=== PATIENT | male | born 1955 | race African-American/Black ===

== ENCOUNTER 2017-02-19 11:02 | Inpatient (IN) | payer OTHER ==
[2017-02-19 17:23] VITALS: BMI 27.3
--- NOTE | 2017-02-19 17:23 | HP ---
CIWA Score - CIWA Score Nausea/Vomitin-Mild Nausea/No Vomiting Muscle Tremors: 4-Moderate,w/Arms Extend Anxiety: 4-Mod. Anxious/Guarded Agitation: 4-Moderately Restless Paroxysmal Sweats: 1-Minimal Palms Moist Orientation: 1-Uncertain about Date Tacttile Disturbances: 0-None Auditory Disturbances: 0-None Visual Disturbances: 0-None Headache: 1-Very Mild CIWA-Ar Total Score: 16 Admission ROS [facility]HS - HPI Chief Complaint: WITHDRAWAL SX Allergies/Adverse Reactions: Allergies Allergy/AdvReac Type Severity Reaction Status Date / Time No Known Allergies Allergy Verified 02/19/17 15:25 History of Present Illness: 51 YEARS OLD MALE WITH LONG HISTORY OF ALCOHOL NICOTINE COCAINE DEPENDENCE HAS HIV BPH DIABETES II PANCREATITIS GERD DENIES MENTAL ILLNESS IS ADMITTED TO DETOX Exam Limitations: No Limitations - Ebola screening Have you traveled outside of the country in the last 21 days: No Have you had contact with anyone from an Ebola affected area: No Have you been sick,other than usual withdrawal symptoms: No Do you have a fever: No - Review of Systems Constitutional: Chills, Loss of Appetite, Changes in sleep, Unintentional Wgt. Loss, Unexplained wgt Loss EENT: reports: Other (EYE GLASSES) Respiratory: reports: No Symptoms reported Cardiac: reports: No Symptoms Reported GI: reports: Nausea, Poor Appetite, Poor Fluid Intake, Rectal Bleeding, Indigestion, Abdominal cramping : reports: Frequency Musculoskeletal: reports: No Symptoms Reported Integumentary: reports: No Symptoms Reported Neuro: reports: Tremors Endocrine: reports: No Symptoms Reported Hematology: reports: No Symptoms Reported Psychiatric: reports: Judgement Intact, Mood/Affect Appropiate Other Systems: Reviewed and Negative Patient History - Patient Medical History Hx Anemia: No Hx Asthma: No Hx Chronic Obstructive Pulmonary Disease (COPD): No Hx Cancer: No Hx Cardiac Disorders: No Hx Congestive Heart Failure: No Hx Hypertension: No Hx Hypercholesterolemia: No Hx Pacemaker: No HX Cerebrovascular Accident: No Hx Seizures: No Hx Dementia: No Hx Diabetes: Yes (LAST DOSE METFORMIN 570 "A YEAR AGO") Hx Gastrointestinal Disorders: Yes Hx Liver Disease: No Hx Genitourinary Disorders: No Hx Sexually Transmitted Disorders: No Hx Renal Disease (ESRD): No Hx Thyroid Disease: No Hx Human Immunodeficiency Virus (HIV): Yes (AIDSsince 1991) Hx Hepatitis C: Yes Hx Depression: No Hx Suicide Attempt: No Hx Bipolar Disorder: No Hx Schizophrenia: No - Patient Surgical History Past Surgical History: Yes Hx Neurologic Surgery: No Hx Cataract Extraction: No Hx Cardiac Surgery: No Hx Lung Surgery: No Hx Breast Surgery: No Hx Breast Biopsy: No Hx Abdominal Surgery: Yes (intestinal obstruction 1996) Hx Appendectomy: No Hx Cholecystectomy: No Hx Genitourinary Surgery: No Hx Orthopedic Surgery: No Other Surgical History: repar inguinal hernias Anesthesia Reaction: No - PPD History Previous Implant?: Yes Documented Results: Positive w/proof Implanted On Prior [facility] Admission?: No Results: positive PPD to be Administered?: No - Smoking Cessation Smoking history: Current every day smoker Have you smoked in the past 12 months: Yes Aproximately how many cigarettes per day: 20 Cigars Per Day: 0 Hx Chewing Tobacco Use: No Initiated information on smoking cessation: Yes 'Breaking Loose' booklet given: 02/19/17 - Substance & Tx. History Hx Alcohol Use: Yes Hx Substance Use: Yes Substance Use Type: Alcohol, Cocaine Hx Substance Use Treatment: Yes - Substances Abused Alcohol Route: Oral Frequency: Daily Amount used: beer(6 pk 12 oz cans) Age of first use: 8 Date of Last Use: 02/19/17 Cocaine Route: Injection Frequency: 1-3 times last 30 days Amount used: $60 Age of first use: 22 Date of Last Use: 02/17/17 Heroin Route: Injection Frequency: Daily Amount used: 4-5 bags Age of first use: 12 Date of Last Use: 02/18/17 Family Disease History - Family Disease History Family Disease History: Heart Disease: Mother (), Other: Father (WAS ETOH DEPENDENT AND ), Mother Admission Physical Exam S - Vital Signs Vital Signs: Vital Signs - 24 hr 02/19/17 12:49 Temperature 95.9 F L Pulse Rate 82 Respiratory 20 Rate Blood Pressure 141/76 - Physical General Appearance: Yes: Nourished, Appropriately Dressed, Mild Distress, Alcohol on Breath, Tremorous, Irritable, Sweating, Anxious HEENTM: Yes: Hearing grossly Normal, Normal ENT Inspection, Normocephalic, Normal Voice Respiratory: Yes: Chest Non-Tender, Lungs Clear, Normal Breath Sounds, No Respiratory Distress, No Accessory Muscle Use Neck: Yes: Supple, Trachea in good position Breast: Yes: Breasts Symetrical Cardiology: Yes: Regular Rhythm, Regular Rate, S1, S2 Abdominal: Yes: Non Tender, Soft Genitourinary: Yes: Dribblimg Back: Yes: Normal Inspection Musculoskeletal: Yes: full range of Motion, Gait Steady Extremities: Yes: Normal Inspection, Normal Range of Motion, Non-Tender, Tremors Neurological: Yes: Alert, Motor Strength 5/5, Normal Mood/Affect, Normal Response Integumentary: Yes: Warm, Track Funez Lymphatic: Yes: Within Normal Limits - Diagnostic (1) Alcohol dependence with uncomplicated withdrawal Current Visit: Yes Status: Acute (2) AIDS (acquired immune deficiency syndrome) Current Visit: Yes Status: Chronic (3) Hepatitis C Current Visit: Yes Status: Chronic Qualifiers: Viral hepatitis chronicity: unspecified Hepatic coma status: without hepatic coma Qualified Code(s): B19.20 - Unspecified viral hepatitis C without hepatic coma (4) Methadone maintenance therapy patient Current Visit: Yes Status: Chronic (5) Nicotine dependence Current Visit: Yes Status: Acute Qualifiers: Nicotine product type: cigarettes Substance use status: in withdrawal Qualified Code(s): F17.213 - Nicotine dependence, cigarettes, with withdrawal (6) Positive PPD, treated Current Visit: Yes Status: Resolved (7) BPH (benign prostatic hyperplasia) Current Visit: Yes Status: Chronic Qualifiers: Lower urinary tract symptom presence: symptoms present Lower urinary tract symptom detail: urinary frequency Qualified Code(s): N40.1 - Benign prostatic hyperplasia with lower urinary tract symptoms; R35.0 - Frequency of micturition (8) GERD (gastroesophageal reflux disease) Current Visit: Yes Status: Chronic Qualifiers: Esophagitis presence: without esophagitis Qualified Code(s): K21.9 - Gastro-esophageal reflux disease without esophagitis (9) Chronic alcoholic pancreatitis Current Visit: Yes Status: Chronic Comment: [facility]ON Cleared for Admission S - Detox or Rehab [facility] Level of Care: Medically Managed Detox Regimen/Protocol: Librium S Breath Alcohol Content Breath Alcohol Content: 0.264 Vital Signs - Vital Signs Vital Signs Refused: No Temperature: 95.9 F Temperature Source: Oral Pulse Rate: 82 Respiratory Rate: 20 Blood Pressure: 141/76 BP Location: Left Arm Blood Pressure Position: Sitting - Height Height: 5 ft 8 in - Weight Weight: 180 lb Weight Measurement Method: Standing Scale Body Mass Index (BMI): 27.3 - Bowel Function Bowel Movement: Yes Urine Drug Screen - Control Is Test Valid: Yes - Results Drug Screen Negative: No Urine Drug Screen Results: TALI-Cocaine, OPI-Opiates, MTD-Methadone
[2017-02-19] MEDS ORDERED: NICOTINE POLACRILEX 4 MG GUM BC PRN (17:28)
[2017-02-19] MEDS ORDERED: ACETAMINOPHEN 325 MG TABLET (FP) PO PRN (17:28)
[2017-02-19] MEDS ORDERED: MENTHOL/PHENOL 1 EACH UD MM PRN (17:28)
[2017-02-19] MEDS ORDERED: P-EPHED 60MG/TRIPROLIDI 2.5MG TABLET PO PRN (17:28)
[2017-02-19] MEDS ORDERED: LOPERAMIDE HCL 2 MG CAPSULE PO PRN (17:28)
[2017-02-19] MEDS ORDERED: MAGNESIUM CITRATE 300 ML BOTTLE PO PRN (17:28)
[2017-02-19] MEDS ORDERED: diphenhydrAMINE HCL 50 MG CAPSULE PO PRN (17:28)
[2017-02-19] MEDS ORDERED: MAG HYDROX/AL HYDROX/SIMETH 30 ML UNIT-DOSE CUP PO PRN (17:28)
[2017-02-19] MEDS ORDERED: guaiFENesin/D-METHORPHAN HB 10 ML UNIT-DOSE CUPS PO PRN (17:28)
[2017-02-19] MEDS ORDERED: MAGNESIUM HYDROX 2400MG/30ML ORAL SUSPENSION 30 ML CUP PO PRN (17:28)
[2017-02-19] MEDS ORDERED: chlordiazePOXIDE HCL 25 MG CAPSULE PO PRN (17:28)
[2017-02-19] MEDS: chlordiazePOXIDE HCL 25 MG CAPSULE PO SCH (22:30)
[2017-02-19] MEDS: RANITIDINE HCL 150 MG TABLET (FP) PO SCH (22:30)
[2017-02-19] MEDS: THIAMINE HCL 100 MG TABLET (FP) PO SCH (22:30)
[2017-02-19 23:31] LABS: URINE APPEARANCE CLEAR; URINE BILIRUBIN NEGATIVE (NEGATIVE); URINE BLOOD NEGATIVE (NEGATIVE); URINE COLOR STRAW; URINE GLUCOSE (UA) NEGATIVE (NEGATIVE); URINE KETONE NEGATIVE (NEGATIVE); URINE NITRITE NEGATIVE (NEGATIVE); URINE PROTEIN NEGATIVE (NEGATIVE); URINE UROBILINOGEN NEGATIVE E.U./dl (0.2-1.0)
[2017-02-19 23:46] LABS: URINE LEUK ESTERASE 1+ (NEGATIVE)
[2017-02-19 23:49] LABS: URINE BACTERIA FEW /hpf (NONE SEEN); URINE RBC <1 /hpf (0-3); URINE WBC 3 /hpf (3-5)
[2017-02-20] MEDS: chlordiazePOXIDE HCL 25 MG CAPSULE PO SCH ×4 (05:15→22:43)
[2017-02-20] MEDS ORDERED: INSULIN (NOVOLOG) ASPART 100 UNITS/ML 10ML VIAL ONE (06:19)
[2017-02-20] MEDS: LIPASE/PROTEASE/AMYLASE 36,000 UNIT CAPSULE PO SCH ×3 (07:52→17:41)
[2017-02-20] MEDS ORDERED: METHADONE HCL 10 MG TABLET PO SCH (08:45)
[2017-02-20] MEDS ORDERED: METHADONE HCL 10 MG TABLET ONE (09:02)
[2017-02-20] MEDS ORDERED: METHADONE HCL 40 MG DISPERSABLE TABLET ONE (09:03)
[2017-02-20] MEDS: TAMSULOSIN HCL 0.4 MG CAP.ER.24H (FP) PO SCH (09:13)
[2017-02-20] MEDS: METHADONE 40 MG, METHADONE 30 MG PO SCH (09:13)
[2017-02-20 10:00] LABS: MCH 31.7 pg (25.7-33.7); MCHC 34.3 g/dl (32.0-35.9); MEAN CELL VOLUME 92.3 fl (80-96); MEAN PLT VOLUME 9.1 fl (7.5-11.1); PLATELET COUNT 183 K/MM3 (134-434); WHITE BLOOD COUNT 5.4 K/mm3 (4.0-10.0)
[2017-02-20] MEDS: CHOLECALCIFEROL (VITAMIN D3) 1,000 UNIT TABLET (FP) PO SCH (10:19)
[2017-02-20] MEDS: RANITIDINE HCL 150 MG TABLET (FP) PO SCH ×2 (10:19→22:43)
[2017-02-20] MEDS: ASPIRIN 81 MG CHEWABLE TABLETS PO SCH (10:19)
[2017-02-20] MEDS: PRENATAL VITAMINS W/ FOLIC ACID TABLET (FP) PO SCH (10:19)
[2017-02-20] MEDS: NICOTINE 21 MG/24 HOURS TOPICAL PATCH TD SCH (10:20)
[2017-02-20 11:17] LABS: ALBUMIN 3.7 g/dl (3.4-5.0); ALK PHOS 164 U/L (45-117); ANION GAP 12 (8-16); BILIRUBIN,TOTAL 0.3 mg/dL (0.2-1.0); CALCIUM 8.5 mg/dL (8.5-10.1); CO2 25 mmol/L (21-32); COCKROFT - GAULT 88.45; GLUCOSE,RANDOM 91 mg/dL (74-106); SGOT/AST 68 U/L (15-37); SGPT/ALT 46 U/L (12-78)
--- NOTE | 2017-02-20 12:00 | EKG ---
Test Reason : Blood Pressure : / mmHG Vent. Rate : 067 BPM Atrial Rate : 067 BPM P-R Int : 204 ms QRS Dur : 094 ms QT Int : 450 ms P-R-T Axes : 066 015 044 degrees QTc Int : 475 ms NORMAL SINUS RHYTHM VOLTAGE CRITERIA FOR LEFT VENTRICULAR HYPERTROPHY ABNORMAL ECG NO PREVIOUS ECGS AVAILABLE Confirmed by ABRAHAN AUSTIN MD ([id number]) on 02/20/2017 12:00:09 PM Referred By: Confirmed By:ABRAHAN AUSTIN MD
--- NOTE | 2017-02-20 15:22 | PN ---
S CIWA - CIWA Score Nausea/Vomitin Muscle Tremors: 4-Moderate,w/Arms Extend Anxiety: 3 Agitation: 1-Slight > Activity Paroxysmal Sweats: 3 Orientation: 0-Oriented Tacttile Disturbances: 2-Mild Itch/Numbness/Burn Auditory Disturbances: 2-Mild Harshness/Frighten Visual Disturbances: 0-None Headache: 0-None Present CIWA-Ar Total Score: 18 S Progress Note (SOAP) Subjective: Tremors, Stomach Cramping, Interrupted Sleep. Objective: PT. A & O X 3, OBSERVED AMBULATING ON UNIT. NO ACUTE DISTRESS. 02/20/17 15:20 Vital Signs Temperature 97.5 F L 02/20/17 13:48 Pulse Rate 67 02/20/17 13:48 Respiratory Rate 18 02/20/17 13:48 Blood Pressure 124/81 02/20/17 13:48 O2 Sat by Pulse Oximetry (%) Laboratory Tests 02/19/17 02/19/17 02/20/17 16:01 Unknown 05:15 WBC RBC Hgb Hct MCV MCHC RDW Plt Count MPV Sodium Potassium Chloride Carbon Dioxide Anion Gap BUN Creatinine Creat Clearance w eGFR POC Glucometer 100 100 Random Glucose Calcium Total Bilirubin AST ALT Alkaline Phosphatase Total Protein Albumin Urine Color Straw Urine Appearance Clear Urine pH 6.0 Urine Protein Negative Urine Glucose (UA) Negative Urine Ketones Negative Urine Blood Negative Urine Nitrite Negative Urine Bilirubin Negative Urine Urobilinogen Negative Ur Leukocyte Esterase 1+ H Urine RBC <1 Urine WBC 3 Ur Epithelial Cells Rare Urine Bacteria Few RPR Titer 02/20/17 02/20/17 02/20/17 06:00 06:00 06:00 WBC 5.4 RBC 4.35 Hgb 13.8 D Hct 40.2 MCV 92.3 MCHC 34.3 RDW 13.0 Plt Count 183 MPV 9.1 Sodium 125 L D Potassium 4.4 Chloride 88 L D Carbon Dioxide 25 Anion Gap 12 BUN 9 Creatinine 1.0 Creat Clearance w eGFR > 60 POC Glucometer Random Glucose 91 Calcium 8.5 Total Bilirubin 0.3 D AST 68 H D ALT 46 D Alkaline Phosphatase 164 H D Total Protein 8.0 D Albumin 3.7 Urine Color Urine Appearance Urine pH Urine Protein Urine Glucose (UA) Urine Ketones Urine Blood Urine Nitrite Urine Bilirubin Urine Urobilinogen Ur Leukocyte Esterase Urine RBC Urine WBC Ur Epithelial Cells Urine Bacteria RPR Titer Nonreactive LABS NOTED. Assessment: 02/20/17 15:21 WITHDRAWAL SYMPTOMS. Plan: CONTINUE DETOX. HEPATIC FUNCTION PANEL ON 02/22/2017 FOR ELEVATED ADMISSION LIVER ENZYME VALUES.
[2017-02-20] MEDS: THIAMINE HCL 100 MG TABLET (FP) PO SCH (22:43)
[2017-02-21] MEDS ORDERED: METHADONE HCL 10 MG TABLET ONE (01:55)
[2017-02-21] MEDS ORDERED: METHADONE HCL 40 MG DISPERSABLE TABLET ONE (01:55)
[2017-02-21] MEDS: chlordiazePOXIDE HCL 25 MG CAPSULE PO SCH ×3 (05:40→16:42)
[2017-02-21] MEDS: METHADONE 40 MG, METHADONE 30 MG PO SCH (05:41)
[2017-02-21] MEDS: LIPASE/PROTEASE/AMYLASE 36,000 UNIT CAPSULE PO SCH ×3 (07:42→16:42)
[2017-02-21] MEDS: PRENATAL VITAMINS W/ FOLIC ACID TABLET (FP) PO SCH (10:50)
[2017-02-21] MEDS: ASPIRIN 81 MG CHEWABLE TABLETS PO SCH (10:50)
[2017-02-21] MEDS: TAMSULOSIN HCL 0.4 MG CAP.ER.24H (FP) PO SCH (10:51)
[2017-02-21] MEDS: NICOTINE 21 MG/24 HOURS TOPICAL PATCH TD SCH (10:51)
[2017-02-21] MEDS: CHOLECALCIFEROL (VITAMIN D3) 1,000 UNIT TABLET (FP) PO SCH (10:51)
[2017-02-21] MEDS: RANITIDINE HCL 150 MG TABLET (FP) PO SCH ×2 (10:51→22:31)
--- NOTE | 2017-02-21 12:21 | PN ---
[facility] CIWA - CIWA Score Nausea/Vomitin-Mild Nausea/No Vomiting Muscle Tremors: 3 Anxiety: 3 Agitation: 3 Paroxysmal Sweats: 3 Orientation: 0-Oriented Tacttile Disturbances: 2-Mild Itch/Numbness/Burn Auditory Disturbances: 0-None Visual Disturbances: 2-Mild Sensitivity Headache: 0-None Present CIWA-Ar Total Score: 17 [facility] Progress Note (SOAP) Subjective: Sweating, Interrupted sleep, Tremors. Objective: PT. A & O X 3. NO ACUTE DISTRESS. 02/21/17 12:21 Vital Signs Temperature 96.9 F L 02/21/17 10:10 Pulse Rate 74 02/21/17 10:10 Respiratory Rate 18 02/21/17 10:10 Blood Pressure 113/75 02/21/17 10:10 O2 Sat by Pulse Oximetry (%) Laboratory Tests 02/19/17 02/19/17 02/20/17 16:01 Unknown 05:15 WBC RBC Hgb Hct MCV MCHC RDW Plt Count MPV Sodium Potassium Chloride Carbon Dioxide Anion Gap BUN Creatinine Creat Clearance w eGFR POC Glucometer 100 100 Random Glucose Calcium Total Bilirubin AST ALT Alkaline Phosphatase Total Protein Albumin Urine Color Straw Urine Appearance Clear Urine pH 6.0 Ur Specific [place] 1.010 Urine Protein Negative Urine Glucose (UA) Negative Urine Ketones Negative Urine Blood Negative Urine Nitrite Negative Urine Bilirubin Negative Urine Urobilinogen Negative Ur Leukocyte Esterase 1+ H Urine RBC <1 Urine WBC 3 Ur Epithelial Cells Rare Urine Bacteria Few RPR Titer 02/20/17 02/20/17 02/20/17 06:00 06:00 06:00 WBC 5.4 RBC 4.35 Hgb 13.8 D Hct 40.2 MCV 92.3 MCHC 34.3 RDW 13.0 Plt Count 183 MPV 9.1 Sodium 125 L D Potassium 4.4 Chloride 88 L D Carbon Dioxide 25 Anion Gap 12 BUN 9 Creatinine 1.0 Creat Clearance w eGFR > 60 POC Glucometer Random Glucose 91 Calcium 8.5 Total Bilirubin 0.3 D AST 68 H D ALT 46 D Alkaline Phosphatase 164 H D Total Protein 8.0 D Albumin 3.7 Urine Color Urine Appearance Urine pH Ur Specific [place] Urine Protein Urine Glucose (UA) Urine Ketones Urine Blood Urine Nitrite Urine Bilirubin Urine Urobilinogen Ur Leukocyte Esterase Urine RBC Urine WBC Ur Epithelial Cells Urine Bacteria RPR Titer Nonreactive 02/21/17 05:40 WBC RBC Hgb Hct MCV MCHC RDW Plt Count MPV Sodium Potassium Chloride Carbon Dioxide Anion Gap BUN Creatinine Creat Clearance w eGFR POC Glucometer 139 Random Glucose Calcium Total Bilirubin AST ALT Alkaline Phosphatase Total Protein Albumin Urine Color Urine Appearance Urine pH Ur Specific [place] Urine Protein Urine Glucose (UA) Urine Ketones Urine Blood Urine Nitrite Urine Bilirubin Urine Urobilinogen Ur Leukocyte Esterase Urine RBC Urine WBC Ur Epithelial Cells Urine Bacteria RPR Titer LABS NOTED. Assessment: 02/21/17 12:22 WITHDRAWAL SYMPTOMS. Plan: CONTINUE DETOX. REPEAT COMP. META. PANEL FOR TOMORROW AM.
[2017-02-21] MEDS: THIAMINE HCL 100 MG TABLET (FP) PO SCH (22:31)
[2017-02-21] MEDS: chlordiazePOXIDE 5 MG CAPSULE PO SCH (22:32)
[2017-02-22] MEDS ORDERED: METHADONE HCL 10 MG TABLET ONE (04:09)
[2017-02-22] MEDS ORDERED: METHADONE HCL 40 MG DISPERSABLE TABLET ONE (04:10)
[2017-02-22] MEDS: METHADONE 40 MG, METHADONE 30 MG PO SCH (05:33)
[2017-02-22] MEDS: chlordiazePOXIDE 5 MG CAPSULE PO SCH ×3 (05:34→17:10)
[2017-02-22] MEDS: LIPASE/PROTEASE/AMYLASE 36,000 UNIT CAPSULE PO SCH ×3 (08:24→17:09)
[2017-02-22 10:06] LABS: ANION GAP 7 (8-16); BILIRUBIN,TOTAL 0.3 mg/dL (0.2-1.0); CALCIUM 9.7 mg/dL (8.5-10.1); CO2 28 mmol/L (21-32); CREATININE 1.2 mg/dL (0.7-1.3); GLUCOSE,RANDOM 152 mg/dL (74-106); SGOT/AST 29 U/L (15-37); SGPT/ALT 28 U/L (12-78); TOT PROT 6.5 g/dl (6.4-8.2)
[2017-02-22 10:07] LABS: ALK PHOS 136 U/L (45-117)
[2017-02-22] MEDS: PRENATAL VITAMINS W/ FOLIC ACID TABLET (FP) PO SCH (10:52)
[2017-02-22] MEDS: ASPIRIN 81 MG CHEWABLE TABLETS PO SCH (10:53)
[2017-02-22] MEDS: CHOLECALCIFEROL (VITAMIN D3) 1,000 UNIT TABLET (FP) PO SCH (10:53)
[2017-02-22] MEDS: RANITIDINE HCL 150 MG TABLET (FP) PO SCH ×2 (10:53→22:29)
[2017-02-22] MEDS: NICOTINE 21 MG/24 HOURS TOPICAL PATCH TD SCH (10:53)
[2017-02-22] MEDS: TAMSULOSIN HCL 0.4 MG CAP.ER.24H (FP) PO SCH (10:57)
--- NOTE | 2017-02-22 12:21 | PN ---
[facility] Progress Note (SOAP) Subjective: Interrupted Sleep, Tremors, Body Aches. Objective: PT. A & O X 2 (DISORIENTED ABOUT DAY / DATE). NO ACUTE DISTRESS. 02/22/17 12:20 Vital Signs Temperature 97.2 F L 02/22/17 10:13 Pulse Rate 85 02/22/17 10:13 Respiratory Rate 18 02/22/17 10:13 Blood Pressure 107/78 02/22/17 10:13 O2 Sat by Pulse Oximetry (%) Laboratory Tests 02/19/17 02/19/17 02/20/17 16:01 Unknown 05:15 WBC RBC Hgb Hct MCV MCHC RDW Plt Count MPV Sodium Potassium Chloride Carbon Dioxide Anion Gap BUN Creatinine Creat Clearance w eGFR POC Glucometer 100 100 Random Glucose Calcium Total Bilirubin AST ALT Alkaline Phosphatase Total Protein Albumin Urine Color Straw Urine Appearance Clear Urine pH 6.0 Ur Specific [place] 1.010 Urine Protein Negative Urine Glucose (UA) Negative Urine Ketones Negative Urine Blood Negative Urine Nitrite Negative Urine Bilirubin Negative Urine Urobilinogen Negative Ur Leukocyte Esterase 1+ H Urine RBC <1 Urine WBC 3 Ur Epithelial Cells Rare Urine Bacteria Few RPR Titer 02/20/17 02/20/17 02/20/17 06:00 06:00 06:00 WBC 5.4 RBC 4.35 Hgb 13.8 D Hct 40.2 MCV 92.3 MCHC 34.3 RDW 13.0 Plt Count 183 MPV 9.1 Sodium 125 L D Potassium 4.4 Chloride 88 L D Carbon Dioxide 25 Anion Gap 12 BUN 9 Creatinine 1.0 Creat Clearance w eGFR > 60 POC Glucometer Random Glucose 91 Calcium 8.5 Total Bilirubin 0.3 D AST 68 H D ALT 46 D Alkaline Phosphatase 164 H D Total Protein 8.0 D Albumin 3.7 Urine Color Urine Appearance Urine pH Ur Specific [place] Urine Protein Urine Glucose (UA) Urine Ketones Urine Blood Urine Nitrite Urine Bilirubin Urine Urobilinogen Ur Leukocyte Esterase Urine RBC Urine WBC Ur Epithelial Cells Urine Bacteria RPR Titer Nonreactive 02/21/17 02/22/17 02/22/17 05:40 05:32 07:00 WBC RBC Hgb Hct MCV MCHC RDW Plt Count MPV Sodium 133 L Potassium 4.1 Chloride 98 D Carbon Dioxide 28 Anion Gap 7 L BUN 24 H D Creatinine 1.2 Creat Clearance w eGFR > 60 POC Glucometer 139 134 Random Glucose 152 H D Calcium 9.7 Total Bilirubin 0.3 AST 29 D ALT 28 D Alkaline Phosphatase 136 H Total Protein 6.5 Albumin 3.0 L Urine Color Urine Appearance Urine pH Ur Specific [place] Urine Protein Urine Glucose (UA) Urine Ketones Urine Blood Urine Nitrite Urine Bilirubin Urine Urobilinogen Ur Leukocyte Esterase Urine RBC Urine WBC Ur Epithelial Cells Urine Bacteria RPR Titer LABS NOTED. Assessment: 02/22/17 12:23 WITHDRAWAL SYMPTOMS. Plan: CONTINUE DETOX. ADVISED PATIENT TO FOLLOW-UP WITH ASSISTANT DISTRIBUTION MANAGER AFTER DISCHARGE FROM DETOX FOR GENERAL MEDICAL ASSESSMENT AND FOR ELEVATED BUN AND ALKALINE PHOSPHATASE LEVELS
[2017-02-22] MEDS: THIAMINE HCL 100 MG TABLET (FP) PO SCH (22:29)
[2017-02-22] MEDS: chlordiazePOXIDE HCL 10 MG CAPSULE PO SCH (22:29)
[2017-02-23] MEDS ORDERED: METHADONE HCL 40 MG DISPERSABLE TABLET ONE (03:14)
[2017-02-23] MEDS ORDERED: METHADONE HCL 10 MG TABLET ONE (03:14)
[2017-02-23] MEDS: chlordiazePOXIDE HCL 10 MG CAPSULE PO SCH ×2 (05:30→10:45)
[2017-02-23] MEDS: METHADONE 40 MG, METHADONE 30 MG PO SCH (05:30)
[2017-02-23] MEDS: LIPASE/PROTEASE/AMYLASE 36,000 UNIT CAPSULE PO SCH ×2 (06:57→10:47)
[2017-02-23] MEDS: TAMSULOSIN HCL 0.4 MG CAP.ER.24H (FP) PO SCH (09:30)
[2017-02-23 10:06] VITALS: BP 99/71; PULSE 96; TEMP 97.2
[2017-02-23] MEDS: PRENATAL VITAMINS W/ FOLIC ACID TABLET (FP) PO SCH (10:45)
[2017-02-23] MEDS: RANITIDINE HCL 150 MG TABLET (FP) PO SCH (10:45)
[2017-02-23] MEDS: ASPIRIN 81 MG CHEWABLE TABLETS PO SCH (10:45)
[2017-02-23] MEDS: NICOTINE 21 MG/24 HOURS TOPICAL PATCH TD SCH (10:45)
[2017-02-23] MEDS: CHOLECALCIFEROL (VITAMIN D3) 1,000 UNIT TABLET (FP) PO SCH (10:45)
--- NOTE | 2017-02-23 11:51 | DS ---
[facility] Detox Discharge Summary Admission Date: 02/19/17 Discharge Date: 02/23/17 - History Present History: Alcohol Dependence, MMTP Additional Comments: ADVISED PATIENT TO FOLLOW-UP WITH SOFTWARE QUALITY MANAGER AFTER DISCHARGE FROM DETOX FOR GENERAL MEDICAL ASSESSMENT. Pertinent Past History: Chronic Pancreatitis, BPH, Hep C, HIV/AIDS, History of Positive PPD, DM, MMTP, GERD. - Physical Exam Results Vital Signs: Vital Signs Temperature 97.2 F L 02/23/17 10:06 Pulse Rate 96 H 02/23/17 10:06 Respiratory Rate 20 02/23/17 10:06 Blood Pressure 99/71 02/23/17 10:06 O2 Sat by Pulse Oximetry (%) Pertinent Admission Physical Exam Findings: WITHDRAWAL SYMPTOMS. Laboratory Tests 02/19/17 02/19/17 02/20/17 16:01 Unknown 05:15 WBC RBC Hgb Hct MCV MCHC RDW Plt Count MPV Sodium Potassium Chloride Carbon Dioxide Anion Gap BUN Creatinine Creat Clearance w eGFR POC Glucometer 100 100 Random Glucose Calcium Total Bilirubin AST ALT Alkaline Phosphatase Total Protein Albumin Urine Color Straw Urine Appearance Clear Urine pH 6.0 Ur Specific [place] 1.010 Urine Protein Negative Urine Glucose (UA) Negative Urine Ketones Negative Urine Blood Negative Urine Nitrite Negative Urine Bilirubin Negative Urine Urobilinogen Negative Ur Leukocyte Esterase 1+ H Urine RBC <1 Urine WBC 3 Ur Epithelial Cells Rare Urine Bacteria Few RPR Titer 02/20/17 02/20/17 02/20/17 06:00 06:00 06:00 WBC 5.4 RBC 4.35 Hgb 13.8 D Hct 40.2 MCV 92.3 MCHC 34.3 RDW 13.0 Plt Count 183 MPV 9.1 Sodium 125 L D Potassium 4.4 Chloride 88 L D Carbon Dioxide 25 Anion Gap 12 BUN 9 Creatinine 1.0 Creat Clearance w eGFR > 60 POC Glucometer Random Glucose 91 Calcium 8.5 Total Bilirubin 0.3 D AST 68 H D ALT 46 D Alkaline Phosphatase 164 H D Total Protein 8.0 D Albumin 3.7 Urine Color Urine Appearance Urine pH Ur Specific [place] Urine Protein Urine Glucose (UA) Urine Ketones Urine Blood Urine Nitrite Urine Bilirubin Urine Urobilinogen Ur Leukocyte Esterase Urine RBC Urine WBC Ur Epithelial Cells Urine Bacteria RPR Titer Nonreactive 02/21/17 02/22/17 02/22/17 05:40 05:32 07:00 WBC RBC Hgb Hct MCV MCHC RDW Plt Count MPV Sodium 133 L Potassium 4.1 Chloride 98 D Carbon Dioxide 28 Anion Gap 7 L BUN 24 H D Creatinine 1.2 Creat Clearance w eGFR > 60 POC Glucometer 139 134 Random Glucose 152 H D Calcium 9.7 Total Bilirubin 0.3 AST 29 D ALT 28 D Alkaline Phosphatase 136 H Total Protein 6.5 Albumin 3.0 L Urine Color Urine Appearance Urine pH Ur Specific [place] Urine Protein Urine Glucose (UA) Urine Ketones Urine Blood Urine Nitrite Urine Bilirubin Urine Urobilinogen Ur Leukocyte Esterase Urine RBC Urine WBC Ur Epithelial Cells Urine Bacteria RPR Titer 02/22/17 16:11 WBC RBC Hgb Hct MCV MCHC RDW Plt Count MPV Sodium Potassium Chloride Carbon Dioxide Anion Gap BUN Creatinine Creat Clearance w eGFR POC Glucometer 152 Random Glucose Calcium Total Bilirubin AST ALT Alkaline Phosphatase Total Protein Albumin Urine Color Urine Appearance Urine pH Ur Specific [place] Urine Protein Urine Glucose (UA) Urine Ketones Urine Blood Urine Nitrite Urine Bilirubin Urine Urobilinogen Ur Leukocyte Esterase Urine RBC Urine WBC Ur Epithelial Cells Urine Bacteria RPR Titer LABS NOTED. - Treatment Hospital Course: Detox Protocol Followed, Detoxed Safely, Responded well, Discharged Condition Good, Rehab Referral Accepted Patient has Accepted a Rehab Referral to: YES - [facility]. - Medication Discharge Medications: Ambulatory Orders Cholecalciferol (Vitamin D3) [Vitamin D3 -] 1,000 unit PO DAILY 02/19/17 Emtricitab/Rilpiviri/Tenof Ala [Odefsey Tablet] 1 each PO DAILY 02/19/17 Lipase/Protease/Amylase [Creon Dr 36,000 Units Capsule] 1 each PO AC 02/19/17 - Diagnosis (1) Alcohol dependence with uncomplicated withdrawal Current Visit: Yes Status: Acute (2) Nicotine dependence Current Visit: Yes Status: Chronic Qualifiers: Nicotine product type: cigarettes Substance use status: in withdrawal Qualified Code(s): F17.213 - Nicotine dependence, cigarettes, with withdrawal (3) AIDS (acquired immune deficiency syndrome) Current Visit: Yes Status: Chronic (4) BPH (benign prostatic hyperplasia) Current Visit: Yes Status: Chronic Qualifiers: Lower urinary tract symptom presence: symptoms present Lower urinary tract symptom detail: urinary frequency Qualified Code(s): N40.1 - Benign prostatic hyperplasia with lower urinary tract symptoms; R35.0 - Frequency of micturition (5) Chronic alcoholic pancreatitis Current Visit: Yes Status: Chronic (6) GERD (gastroesophageal reflux disease) Current Visit: Yes Status: Chronic Qualifiers: Esophagitis presence: without esophagitis Qualified Code(s): K21.9 - Gastro-esophageal reflux disease without esophagitis (7) Hepatitis C Current Visit: Yes Status: Chronic Qualifiers: Viral hepatitis chronicity: unspecified Hepatic coma status: without hepatic coma Qualified Code(s): B19.20 - Unspecified viral hepatitis C without hepatic coma (8) Methadone maintenance therapy patient Current Visit: Yes Status: Chronic (9) Positive PPD, treated Current Visit: Yes Status: Resolved (10) Type 2 diabetes mellitus Current Visit: Yes Status: Chronic Qualifiers: Diabetes mellitus complication status: without complication Diabetes mellitus jail insulin use: unspecified intermodal dispatcher insulin use status Qualified Code(s): E11.9 - Type 2 diabetes mellitus without complications - AMA Did Patient Leave Against Medical Advice: No
== END 2017-02-23 12:35 | disposition home or self-care (01) | DRG 773 ==
LOC: YASAS 11:02 → Y3N 16:28
PROVIDERS: ADMIT Internal Medicine; ATTEND Internal Medicine
PROC: HZ2ZZZZ Detoxification Services for Substance Abuse Treatment (ICD-10-PCS; principal; 2017-02-19)
DX: F10.230 Alcohol dependence with withdrawal, uncomplicated (principal); F11.20 Opioid dependence, uncomplicated; F17.213 Nicotine dependence, cigarettes, with withdrawal; B20 Human immunodeficiency virus [HIV] disease; N40.1 Benign prostatic hyperplasia with lower urinary tract symptoms; R35.0 Frequency of micturition; K86.0 Alcohol-induced chronic pancreatitis; K21.9 Gastro-esophageal reflux disease without esophagitis; B19.20 Unspecified viral hepatitis C without hepatic coma; R76.11 Nonspecific reaction to tuberculin skin test without active tuberculosis; E11.9 Type 2 diabetes mellitus without complications; Z79.4 Long term (current) use of insulin
CPT/HCPCS: 36415; 71020-TC; 80053; 81003; 81015; 85027; 86593; 93005; 93010

== ENCOUNTER 2017-09-25 12:41 | Inpatient (IN) | payer OTHER ==
[2017-09-25 12:58] VITALS: BMI 21.2
--- NOTE | 2017-09-25 15:00 | HP ---
CIWA Score - CIWA Score Nausea/Vomitin Muscle Tremors: 3 Anxiety: 3 Agitation: 3 Paroxysmal Sweats: 2 Orientation: 0-Oriented Tacttile Disturbances: 2-Mild Itch/Numbness/Burn Auditory Disturbances: 2-Mild Harshness/Frighten Visual Disturbances: 1-Very Mild Sensitivity Headache: 2-Mild CIWA-Ar Total Score: 21 Admission ROS BHS - HPI Chief Complaint: I NEED HELP TO STOP DRINKING ALCOHOL Allergies/Adverse Reactions: Allergies Allergy/AdvReac Type Severity Reaction Status Date / Time No Known Allergies Allergy Verified 09/25/17 14:56 History of Present Illness: THIS 62 YEARS OLD MALE WITH ALCOHOL DEPENDENCE,SEEKING DETOX,WITHDRAWAL SYMPTOM, LAST DETOX [facility] TO 02/23/17 ON MMTP 80 MGS/DAY,LAST MEDICATED TODAY HIV SINCE 1991 PANCREATITIS LONGEST PERIOD OF SOBRIETY 3 YEARS Exam Limitations: No Limitations - Ebola screening Have you traveled outside of the country in the last 21 days: No Have you had contact with anyone from an Ebola affected area: No Have you been sick,other than usual withdrawal symptoms: No Do you have a fever: No - Review of Systems Constitutional: Loss of Appetite, Malaise, Night Sweats, Changes in sleep, Weakness, Unintentional Wgt. Loss EENT: reports: Nose Congestion Respiratory: reports: No Symptoms reported, Other (SARCOIDOSIS) Cardiac: reports: No Symptoms Reported GI: reports: Diarrhea, Nausea, Vomiting, Abdominal cramping : reports: No Symptoms Reported Musculoskeletal: reports: Back Pain, Muscle Pain Integumentary: reports: Dryness Neuro: reports: Headache, Tremors Endocrine: reports: No Symptoms Reported Hematology: reports: Other (HIV) Psychiatric: reports: No Sypmtoms Reported Other Systems: Reviewed and Negative Patient History - Patient Medical History Hx Anemia: No Hx Asthma: No Hx Chronic Obstructive Pulmonary Disease (COPD): No Hx Cancer: No Hx Cardiac Disorders: No Hx Congestive Heart Failure: No Hx Hypertension: No Hx Hypercholesterolemia: No Hx Pacemaker: No HX Cerebrovascular Accident: No Hx Seizures: No Hx Dementia: No Hx Diabetes: Yes (NOMED) Hx Gastrointestinal Disorders: Yes Hx Liver Disease: No Hx Genitourinary Disorders: No Hx Sexually Transmitted Disorders: No Hx Renal Disease (ESRD): No Hx Thyroid Disease: No Hx Human Immunodeficiency Virus (HIV): Yes (AIDSsince 1991) Hx Hepatitis C: Yes (NO TREATMENT) Hx Depression: No Hx Suicide Attempt: No Hx Bipolar Disorder: No Hx Schizophrenia: No Other Medical History: NO SUICIDAL,NO HOMICIDAL - Patient Surgical History Past Surgical History: Yes Hx Neurologic Surgery: No Hx Cataract Extraction: No Hx Cardiac Surgery: No Hx Lung Surgery: No Hx Breast Surgery: No Hx Breast Biopsy: No Hx Abdominal Surgery: Yes (intestinal obstruction 1996) Hx Appendectomy: No Hx Cholecystectomy: No Hx Genitourinary Surgery: No Hx Orthopedic Surgery: No Other Surgical History: repaIr inguinal hernias Anesthesia Reaction: No - PPD History Previous Implant?: Yes Documented Results: Positive w/proof Results: positive PPD to be Administered?: No - Smoking Cessation Smoking history: Current every day smoker Have you smoked in the past 12 months: Yes Aproximately how many cigarettes per day: 20 Cigars Per Day: 0 Hx Chewing Tobacco Use: No Initiated information on smoking cessation: Yes 'Breaking Loose' booklet given: 09/25/17 - Substance & Tx. History Hx Alcohol Use: Yes Hx Substance Use: No Substance Use Type: Alcohol Hx Substance Use Treatment: Yes ([facility] 02/19/17 TO 02/23/17) - Substances Abused Alcohol Route: Oral Frequency: Daily Amount used: 3 6PKS BEER Age of first use: 12 Date of Last Use: 09/25/17 Family Disease History - Family Disease History Family Disease History: Heart Disease: Mother (), Other: Father (WAS ETOH DEPENDENT AND ), Mother Admission Physical Exam S - Vital Signs Vital Signs: Vital Signs - 24 hr 09/25/17 12:57 Temperature 97.6 F Pulse Rate 80 Respiratory 18 Rate Blood Pressure 130/60 - Physical General Appearance: Yes: Moderate Distress, Tremorous, Irritable, Sweating, Anxious HEENTM: Yes: Normal ENT Inspection, VINNY, Pharynx Normal Respiratory: Yes: Lungs Clear, Normal Breath Sounds, No Respiratory Distress Neck: Yes: Within Normal Limits, Supple, Trachea in good position Breast: Yes: Within Normal Limits Cardiology: Yes: Within Normal Limits, Regular Rhythm, Regular Rate, S1, S2 Abdominal: Yes: Within Normal Limits, Normal Bowel Sounds, Non Tender, Soft Genitourinary: Yes: Within Normal Limits Back: Yes: Muscle Spasm Musculoskeletal: Yes: full range of Motion, Back pain, Muscle Pain Extremities: Yes: Tremors Neurological: Yes: wedding designer II-XII NML intact, Fully Oriented, Alert, Motor Strength 5/5 Integumentary: Yes: Dry Lymphatic: Yes: Within Normal Limits - Diagnostic (1) Alcohol dependence with uncomplicated withdrawal Current Visit: No Status: Acute (2) S/P bilateral inguinal hernia repair Current Visit: No Status: Acute (3) S/p small bowel obstruction Current Visit: No Status: Acute (4) Sarcoidosis Current Visit: No Status: Acute (5) AIDS (acquired immune deficiency syndrome) Current Visit: No Status: Chronic (6) BPH (benign prostatic hyperplasia) Current Visit: No Status: Chronic Qualifiers: Lower urinary tract symptom presence: symptoms present Lower urinary tract symptom detail: urinary frequency Qualified Code(s): N40.1 - Benign prostatic hyperplasia with lower urinary tract symptoms (7) Chronic alcoholic pancreatitis Current Visit: No Status: Chronic Comment: CHRISTOPHER (8) Hepatitis C Current Visit: No Status: Chronic Qualifiers: Viral hepatitis chronicity: unspecified Hepatic coma status: without hepatic coma Qualified Code(s): B19.20 - Unspecified viral hepatitis C without hepatic coma (9) Methadone maintenance therapy patient Current Visit: No Status: Chronic (10) Nicotine dependence Current Visit: No Status: Chronic Qualifiers: Nicotine product type: cigarettes Substance use status: in withdrawal Qualified Code(s): F17.213 - Nicotine dependence, cigarettes, with withdrawal (11) Type 2 diabetes mellitus Current Visit: No Status: Chronic Qualifiers: Diabetes mellitus complication status: without complication Diabetes mellitus fpc insulin use: unspecified fpc insulin use status Qualified Code(s): E11.9 - Type 2 diabetes mellitus without complications (12) Pancreatitis Current Visit: Yes Status: Acute Cleared for Admission BHS - Detox or Rehab [facility] Level of Care: Medically Managed Detox Regimen/Protocol: Librium [facility] Breath Alcohol Content Breath Alcohol Content: 0.240 Urine Drug Screen - Results Drug Screen Negative: No Urine Drug Screen Results: MTD-Methadone
[2017-09-25] MEDS ORDERED: hydrOXYzine PAMOATE 25 MG CAPSULE (FP) PO PRN (15:10)
[2017-09-25] MEDS ORDERED: IBUPROFEN 400 MG TABLET (FP) PO PRN (15:10)
[2017-09-25] MEDS ORDERED: guaiFENesin/D-METHORPHAN HB 10 ML UNIT-DOSE CUPS PO PRN (15:10)
[2017-09-25] MEDS ORDERED: ACETAMINOPHEN 325 MG TABLET (FP) PO PRN (15:10)
[2017-09-25] MEDS ORDERED: P-EPHED 60MG/TRIPROLIDI 2.5MG TABLET PO PRN (15:10)
[2017-09-25] MEDS ORDERED: MENTHOL/PHENOL 1 EACH UD MM PRN (15:10)
[2017-09-25] MEDS ORDERED: chlordiazePOXIDE HCL 25 MG CAPSULE PO PRN (15:10)
[2017-09-25] MEDS ORDERED: MAGNESIUM HYDROX 2400MG/30ML ORAL SUSPENSION 30 ML CUP PO PRN (15:10)
[2017-09-25] MEDS ORDERED: MAGNESIUM CITRATE 300 ML BOTTLE PO PRN (15:10)
[2017-09-25] MEDS ORDERED: LOPERAMIDE HCL 2 MG CAPSULE PO PRN (15:10)
[2017-09-25] MEDS ORDERED: MAG HYDROX/AL HYDROX/SIMETH 30 ML UNIT-DOSE CUP PO PRN (15:10)
[2017-09-25] MEDS: chlordiazePOXIDE HCL 25 MG CAPSULE PO SCH ×2 (17:38→22:10)
[2017-09-25 18:24] LABS: URINE APPEARANCE CLEAR; URINE BILIRUBIN NEGATIVE (NEGATIVE); URINE BLOOD NEGATIVE (NEGATIVE); URINE COLOR STRAW; URINE GLUCOSE (UA) NEGATIVE (NEGATIVE); URINE KETONE NEGATIVE (NEGATIVE); URINE LEUK ESTERASE NEGATIVE (NEGATIVE); URINE NITRITE NEGATIVE (NEGATIVE); URINE PROTEIN NEGATIVE (NEGATIVE); URINE UROBILINOGEN NEGATIVE mg/dL (0.2-1.0)
--- NOTE | 2017-09-25 18:26 | CONSULT ---
[facility] Psychiatric Consult - Data Date of interview: 09/25/17 Admission source: [facility] Identifying data: Pt. is a 62 year old male, , father of three, and retired. Pt admitted to for alcohol dependence. Substance Abuse History: Following information confirmed with Mr. Garcia: - Substance & Tx. History. Hx Alcohol Use: Yes. Hx Substance Use: No. Substance Use Type: Alcohol. Hx Substance Use Treatment: Yes ([facility] 02/19/17 TO 02/23/17). - Substances Abused. Alcohol. Route: Oral. Frequency: Daily. Amount used: 3 6PKS BEER. Age of first use: 12. Date of Last Use: 09/25/17 Medical History: Diabetes, Hep C, HIV Psychiatric History: Pt. denies h/o psychiatric hospitaizations, suicide attempt and OPC. States his in 1995 and is still grieving. Physical/Sexual Abuse/Trauma History: Denies. Mental Status Exam - Mental Status Exam Alert and Oriented to: Time, Place, Person Cognitive Function: Good Patient Appearance: Unkempt Mood: Sad Affect: Mood Congruent Patient Behavior: Appropriate, Cooperative Speech Pattern: Appropriate Voice Loudness: Normal Thought Process: Goal Oriented Thought Disorder: Not Present Hallucinations: Denies Suicidal Ideation: Denies Homicidal Ideation: Denies Insight/Judgement: Poor Sleep: Fair Appetite: Fair Muscle strength/Tone: Normal Gait/Station: Normal Psychiatric Findings - Problem List ([place] 1, 2,3) (1) Alcohol dependence with uncomplicated withdrawal Current Visit: Yes Status: Acute (2) EtOH dependence Current Visit: Yes Status: Acute Qualifiers: Substance use status: uncomplicated Qualified Code(s): F10.20 - Alcohol dependence, uncomplicated (3) Nicotine dependence Current Visit: Yes Status: Chronic Qualifiers: Nicotine product type: cigarettes Substance use status: in withdrawal Qualified Code(s): F17.213 - Nicotine dependence, cigarettes, with withdrawal (4) Grieving Current Visit: Yes Status: Chronic Comment: in 1995. Pt. reports still grieving. - Initial Treatment Plan Initial Treatment Plan: Psychoeducation provided. Detoxification in progress. Observation.
[2017-09-25] MEDS: LIPASE/PROTEASE/AMYLASE 36,000 UNIT CAPSULE PO SCH (21:48)
[2017-09-25] MEDS: THIAMINE HCL 100 MG TABLET (FP) PO SCH (22:10)
[2017-09-26] MEDS: chlordiazePOXIDE HCL 25 MG CAPSULE PO SCH ×4 (05:28→22:19)
--- NOTE | 2017-09-26 09:38 | EKG ---
Test Reason : Blood Pressure : / mmHG Vent. Rate : 075 BPM Atrial Rate : 075 BPM P-R Int : 214 ms QRS Dur : 102 ms QT Int : 392 ms P-R-T Axes : 063 007 042 degrees QTc Int : 437 ms SINUS RHYTHM WITH 1ST DEGREE A-V BLOCK NONSPECIFIC T WAVE ABNORMALITY ABNORMAL ECG WHEN COMPARED WITH ECG OF 19-FEB-2017 17:56, INVERTED T WAVES HAVE REPLACED NONSPECIFIC T WAVE ABNORMALITY IN ANTERIOR LEADS Confirmed by BRAIN LANDERS, LALI ([id number]) on 09/26/2017 9:38:39 AM Referred By: Confirmed By:LALI DE LA PAZ MD
[2017-09-26] MEDS: EMTRICITAB/RILPIVIRI/TENOF ALA (ODEFSEY) TABLET PO SCH (09:43)
[2017-09-26] MEDS: LIPASE/PROTEASE/AMYLASE 36,000 UNIT CAPSULE PO SCH ×3 (09:43→18:36)
[2017-09-26] MEDS: METHADONE HCL 40 MG DISPERSABLE TABLET PO SCH (09:44)
[2017-09-26] MEDS: PRENATAL VITAMINS W/ FOLIC ACID TABLET (FP) PO SCH (09:44)
[2017-09-26 10:18] LABS: HEMATOCRIT 43.9 % (35.4-49); HEMOGLOBIN 14.5 GM/dL (11.7-16.9); MCH 31.7 pg (25.7-33.7); MEAN CELL VOLUME 96.1 fl (80-96); MEAN PLT VOLUME 8.9 fl (7.5-11.1); PLATELET COUNT 250 K/MM3 (134-434); RBC 4.57 M/mm3 (4.00-5.60); RDW 13.2 % (11.9-15.9)
[2017-09-26 10:23] LABS: CHLORIDE 91 mmol/L (98-107); POTASSIUM 4.1 mmol/L (3.5-5.1)
[2017-09-26 10:26] LABS: ALBUMIN 3.8 g/dl (3.4-5.0); ALK PHOS 154 U/L (45-117); ANION GAP 9 (8-16); BILIRUBIN,TOTAL 0.3 mg/dL (0.2-1.0); BLOOD UREA NITROGEN 5 mg/dL (7-18); CALCIUM 8.2 mg/dL (8.5-10.1); CO2 24 mmol/L (21-32); CREATININE 0.8 mg/dL (0.7-1.3); GLUCOSE,RANDOM 106 mg/dL (74-106); SGOT/AST 65 U/L (15-37); SGPT/ALT 54 U/L (12-78); TOT PROT 7.9 g/dl (6.4-8.2)
--- NOTE | 2017-09-26 10:42 | PN ---
S CIWA - CIWA Score Nausea/Vomitin Muscle Tremors: 3 Anxiety: 3 Agitation: 2 Paroxysmal Sweats: 1-Minimal Palms Moist Orientation: 0-Oriented Tacttile Disturbances: 1-Very Mild Itch/Numbness Auditory Disturbances: 1-Very Mild Visual Disturbances: 0-None Headache: 2-Mild CIWA-Ar Total Score: 16 BHS Progress Note (SOAP) Subjective: ALERT,IRRITABLE,ANXIOUS,INTERRUPTED SLEEP,TREMOR Objective: 09/26/17 10:42 Vital Signs Temperature 97.9 F 09/26/17 06:23 Pulse Rate 71 09/26/17 06:23 Respiratory Rate 18 09/26/17 06:23 Blood Pressure 132/70 09/26/17 06:23 O2 Sat by Pulse Oximetry (%) Laboratory Last Values WBC 7.0 K/mm3 (4.0-10.0) 09/26/17 06:00 RBC 4.57 M/mm3 (4.00-5.60) 09/26/17 06:00 Hgb 14.5 GM/dL (11.7-16.9) 09/26/17 06:00 Hct 43.9 % (35.4-49) 09/26/17 06:00 MCV 96.1 fl (80-96) H 09/26/17 06:00 MCH 31.7 pg (25.7-33.7) 09/26/17 06:00 MCHC 33.0 g/dl (32.0-35.9) 09/26/17 06:00 RDW 13.2 % (11.9-15.9) 09/26/17 06:00 Plt Count 250 K/MM3 (134-434) D 09/26/17 06:00 MPV 8.9 fl (7.5-11.1) 09/26/17 06:00 Potassium 4.1 mmol/L (3.5-5.1) 09/26/17 06:00 Chloride 91 mmol/L (98-107) L 09/26/17 06:00 Carbon Dioxide 24 mmol/L (21-32) 09/26/17 06:00 Anion Gap 9 (8-16) 09/26/17 06:00 BUN 5 mg/dL (7-18) L D 09/26/17 06:00 Creatinine 0.8 mg/dL (0.7-1.3) D 09/26/17 06:00 Creat Clearance w eGFR > 60 (>60) 09/26/17 06:00 POC Glucometer 94 UNITS (80-120) 09/26/17 05:26 Random Glucose 106 mg/dL (74-106) D 09/26/17 06:00 Calcium 8.2 mg/dL (8.5-10.1) L 09/26/17 06:00 Total Bilirubin 0.3 mg/dL (0.2-1.0) 09/26/17 06:00 AST 65 U/L (15-37) H D 09/26/17 06:00 ALT 54 U/L (12-78) D 09/26/17 06:00 Alkaline Phosphatase 154 U/L (45-117) H 09/26/17 06:00 Total Protein 7.9 g/dl (6.4-8.2) D 09/26/17 06:00 Albumin 3.8 g/dl (3.4-5.0) D 09/26/17 06:00 Urine Color Straw 09/25/17 18:00 Urine Appearance Clear 09/25/17 18:00 Urine pH 5.0 (5.0-8.0) 09/25/17 18:00 Ur Specific [place] 1.004 (1.001-1.035) 09/25/17 18:00 Urine Protein Negative (NEGATIVE) 09/25/17 18:00 Urine Glucose (UA) Negative (NEGATIVE) 09/25/17 18:00 Urine Ketones Negative (NEGATIVE) 09/25/17 18:00 Urine Blood Negative (NEGATIVE) 09/25/17 18:00 Urine Nitrite Negative (NEGATIVE) 09/25/17 18:00 Urine Bilirubin Negative (NEGATIVE) 09/25/17 18:00 Urine Urobilinogen Negative mg/dL (0.2-1.0) 09/25/17 18:00 Ur Leukocyte Esterase Negative (NEGATIVE) 09/25/17 18:00 Assessment: 09/26/17 10:43 WITHDRAWAL SYMPTOM Plan: CONTINUE DETOX
[2017-09-26 11:07] LABS: SODIUM 124 mmol/L (136-145)
--- NOTE | 2017-09-26 17:52 | PN ---
[facility] Progress Note Note: RECEIVED NURSE CALL THAT THE PATIENT HAS BGM 515 ASYMPTOMATIC HAS CHRONIC PANCREATITIS DENIES NEED FOR INSULIN BY HISTORY DENIES TREATMENT FOR HYPERGLYCEMIA BUT DIETARY CONTROL BEGIN DIABETES DIET WITH DIETARY CONSULTATION BEGIN GLUCERNA
[2017-09-26] MEDS: THIAMINE HCL 100 MG TABLET (FP) PO SCH (22:18)
[2017-09-27] MEDS: chlordiazePOXIDE HCL 25 MG CAPSULE PO SCH ×2 (05:30→10:50)
[2017-09-27] MEDS: METHADONE HCL 40 MG DISPERSABLE TABLET PO SCH (05:30)
[2017-09-27] MEDS: LIPASE/PROTEASE/AMYLASE 36,000 UNIT CAPSULE PO SCH ×3 (09:00→18:01)
[2017-09-27 10:13] LABS: CHLORIDE 99 mmol/L (98-107); POTASSIUM 4.1 mmol/L (3.5-5.1); SODIUM 133 mmol/L (136-145)
[2017-09-27] MEDS ORDERED: metFORMIN HCL 500 MG TABLET (FP) PO ONE (10:32)
--- NOTE | 2017-09-27 10:40 | PN ---
S CIWA - CIWA Score Nausea/Vomitin Muscle Tremors: 3 Anxiety: 3 Agitation: 3 Paroxysmal Sweats: 2 Orientation: 0-Oriented Tacttile Disturbances: 1-Very Mild Itch/Numbness Auditory Disturbances: 1-Very Mild Visual Disturbances: 0-None Headache: 2-Mild CIWA-Ar Total Score: 18 BHS Progress Note (SOAP) Subjective: ALERT,IRRITABLE,ANXIOUS,INTERRUPTED SLEEP,TREMOR Objective: 09/27/17 10:38 Vital Signs Temperature 99.5 F 09/27/17 10:03 Pulse Rate 81 09/27/17 10:03 Respiratory Rate 18 09/27/17 10:03 Blood Pressure 96/64 09/27/17 10:03 O2 Sat by Pulse Oximetry (%) Assessment: 09/27/17 10:38 Laboratory Results - last 24 hr 09/26/17 09/26/17 09/26/17 06:00 06:00 16:47 Sodium 124 L* Potassium Chloride POC Glucometer 515 RPR Titer Nonreactive 09/27/17 09/27/17 05:29 09:00 Sodium 133 L Potassium 4.1 Chloride 99 POC Glucometer 394 RPR Titer SODIUM 133 Plan: WITHDRAWAL SYMPTOM,CONTINUE DETOX,BGM MONITORING WITH INSULIN COVERAGE, GLUCOPHAGE 500 MGS PO BID
[2017-09-27] MEDS: PRENATAL VITAMINS W/ FOLIC ACID TABLET (FP) PO SCH (10:50)
[2017-09-27] MEDS: EMTRICITAB/RILPIVIRI/TENOF ALA (ODEFSEY) TABLET PO SCH (10:51)
[2017-09-27 10:54] LABS: ALBUMIN 3.4 g/dl (3.4-5.0); ALK PHOS 152 U/L (45-117); ANION GAP 7 (8-16); BILIRUBIN,TOTAL 0.9 mg/dL (0.2-1.0); BLOOD UREA NITROGEN 17 mg/dL (7-18); CALCIUM 9.1 mg/dL (8.5-10.1); CO2 27 mmol/L (21-32); CREATININE 1.2 mg/dL (0.7-1.3); GLUCOSE,RANDOM 208 mg/dL (74-106); SGOT/AST 36 U/L (15-37); SGPT/ALT 42 U/L (12-78); TOT PROT 7.3 g/dl (6.4-8.2)
[2017-09-27] MEDS: INSULIN (NOVOLOG) ASPART 100 UNITS/ML 10ML VIAL SQ SCH ×3 (11:48→22:05)
[2017-09-27] MEDS: metFORMIN HCL 500 MG TABLET (FP) PO SCH (18:00)
[2017-09-27] MEDS: chlordiazePOXIDE 5 MG CAPSULE PO SCH ×2 (18:01→22:05)
[2017-09-27] MEDS: THIAMINE HCL 100 MG TABLET (FP) PO SCH (22:05)
[2017-09-28] MEDS: chlordiazePOXIDE 5 MG CAPSULE PO SCH ×2 (05:37→10:08)
[2017-09-28] MEDS: METHADONE HCL 40 MG DISPERSABLE TABLET PO SCH (05:37)
[2017-09-28] MEDS: metFORMIN HCL 500 MG TABLET (FP) PO SCH ×2 (06:09→17:29)
[2017-09-28] MEDS: INSULIN (NOVOLOG) ASPART 100 UNITS/ML 10ML VIAL SQ SCH ×4 (06:13→22:12)
[2017-09-28] MEDS: LIPASE/PROTEASE/AMYLASE 36,000 UNIT CAPSULE PO SCH ×3 (09:00→17:32)
[2017-09-28] MEDS: PRENATAL VITAMINS W/ FOLIC ACID TABLET (FP) PO SCH (10:08)
[2017-09-28] MEDS: EMTRICITAB/RILPIVIRI/TENOF ALA (ODEFSEY) TABLET PO SCH (10:08)
[2017-09-28] MEDS ORDERED: INSULIN (NOVOLOG) ASPART 100 UNITS/ML 10ML VIAL ONE ×3 (11:22→21:32)
--- NOTE | 2017-09-28 12:21 | PN ---
S Progress Note (SOAP) Subjective: ALERT,IRRITABLE,ANXIOUS,INTERRUPTED SLEEP Objective: 09/28/17 12:19 Vital Signs Temperature 98 F 09/28/17 10:34 Pulse Rate 76 09/28/17 10:34 Respiratory Rate 18 09/28/17 10:34 Blood Pressure 111/53 09/28/17 10:34 O2 Sat by Pulse Oximetry (%) BGM 124 Assessment: 09/28/17 12:20 WITHDRAWAL SYMPTOM Plan: CONTINUE DETOX,BGM MONITORING,GLUCOPHAGE 500 MGS PO BID,DISCHARGE IN AM
[2017-09-28] MEDS: chlordiazePOXIDE HCL 10 MG CAPSULE PO SCH ×2 (17:34→22:07)
[2017-09-28] MEDS: THIAMINE HCL 100 MG TABLET (FP) PO SCH (22:12)
[2017-09-29] MEDS: METHADONE HCL 40 MG DISPERSABLE TABLET PO SCH (05:43)
[2017-09-29] MEDS: chlordiazePOXIDE HCL 10 MG CAPSULE PO SCH (05:43)
[2017-09-29] MEDS: INSULIN (NOVOLOG) ASPART 100 UNITS/ML 10ML VIAL SQ SCH (07:33)
[2017-09-29] MEDS: metFORMIN HCL 500 MG TABLET (FP) PO SCH (07:34)
--- NOTE | 2017-09-29 08:34 | DS ---
[facility] Detox Discharge Summary Admission Date: 09/25/17 Discharge Date: 09/29/17 - History Present History: Alcohol Dependence Additional Comments: AIDS BPH SARCOIDOSIS CHRONIC ALCOHOLISM WITH PANCREATITIS TYPE 2 DM S/P SMALL BOWEL OBSTRUCTION S/P INGUINAL HERNIA REPAIR FOLLOW UP WITH AFTER CARE PROGRAM ARRANGEMENT - Physical Exam Results Vital Signs: Vital Signs Temperature 99.3 F 09/29/17 06:00 Pulse Rate 74 09/29/17 06:00 Respiratory Rate 16 09/29/17 06:00 Blood Pressure 121/70 09/29/17 06:00 O2 Sat by Pulse Oximetry (%) Pertinent Admission Physical Exam Findings: WITHDRAWAL SYMPTOM AND FINDING - Treatment Hospital Course: Detox Protocol Followed, Detoxed Safely, Responded well, Discharged Condition Good Patient has Accepted a Rehab Referral to: DECLINED - Medication Discharge Medications: Ambulatory Orders Cholecalciferol (Vitamin D3) [Vitamin D3 -] 1,000 unit PO DAILY 02/19/17 Emtricitab/Rilpiviri/Tenof Ala [Odefsey Tablet] 1 each PO DAILY 02/19/17 Lipase/Protease/Amylase [Creon Dr 36,000 Units Capsule] 1 each PO AC 02/19/17 - Diagnosis (1) Alcohol dependence with uncomplicated withdrawal Current Visit: Yes Status: Acute (2) S/P bilateral inguinal hernia repair Current Visit: No Status: Acute (3) S/p small bowel obstruction Current Visit: No Status: Acute (4) Sarcoidosis Current Visit: No Status: Acute (5) AIDS (acquired immune deficiency syndrome) Current Visit: No Status: Chronic (6) BPH (benign prostatic hyperplasia) Current Visit: No Status: Chronic Qualifiers: Lower urinary tract symptom presence: symptoms present Lower urinary tract symptom detail: urinary frequency Qualified Code(s): N40.1 - Benign prostatic hyperplasia with lower urinary tract symptoms (7) Chronic alcoholic pancreatitis Current Visit: No Status: Chronic (8) Hepatitis C Current Visit: No Status: Chronic Qualifiers: Viral hepatitis chronicity: unspecified Hepatic coma status: without hepatic coma Qualified Code(s): B19.20 - Unspecified viral hepatitis C without hepatic coma (9) Methadone maintenance therapy patient Current Visit: No Status: Chronic (10) Nicotine dependence Current Visit: Yes Status: Chronic Qualifiers: Nicotine product type: cigarettes Substance use status: in withdrawal Qualified Code(s): F17.213 - Nicotine dependence, cigarettes, with withdrawal (11) Type 2 diabetes mellitus Current Visit: No Status: Chronic Qualifiers: Diabetes mellitus complication status: without complication Diabetes mellitus long term care phlebotomist insulin use: unspecified jail insulin use status Qualified Code(s): E11.9 - Type 2 diabetes mellitus without complications (12) Pancreatitis Current Visit: Yes Status: Acute (13) Hyponatremia Current Visit: Yes Status: Acute - AMA Did Patient Leave Against Medical Advice: No
[2017-09-29 10:30] VITALS: BP 120/68; PULSE 82; TEMP 98.1
== END 2017-09-29 12:33 | disposition home or self-care (01) | DRG 773 ==
LOC: YASAS 12:41 → Y6N 15:24
PROVIDERS: ADMIT Internal Medicine; ATTEND Internal Medicine
PROC: HZ2ZZZZ Detoxification Services for Substance Abuse Treatment (ICD-10-PCS; principal; 2017-09-29)
DX: F11.20 Opioid dependence, uncomplicated (principal); F10.230 Alcohol dependence with withdrawal, uncomplicated; B19.20 Unspecified viral hepatitis C without hepatic coma; N40.1 Benign prostatic hyperplasia with lower urinary tract symptoms; R35.0 Frequency of micturition; E11.9 Type 2 diabetes mellitus without complications; Z79.4 Long term (current) use of insulin; E86.0 Dehydration; F43.20 Adjustment disorder, unspecified; E87.1 Hypo-osmolality and hyponatremia
CPT/HCPCS: 36415; 80053; 81003; 82962; 85027; 86593; 93005; 93010

== ENCOUNTER 2018-12-21 15:03 | Inpatient (IN) | payer OTHER ==
[2018-12-21 17:02] VITALS: BMI 20.8
--- NOTE | 2018-12-21 18:42 | HP ---
CIWA Score Nausea/Vomitin Muscle Tremors: None Anxiety: 3 Agitation: 3 Paroxysmal Sweats: 1-Minimal Palms Moist Orientation: 0-Oriented Tacttile Disturbances: 2-Mild Itch/Numbness/Burn Auditory Disturbances: 0-None Visual Disturbances: 0-None Headache: 2-Mild CIWA-Ar Total Score: 13 - Admission Criteria [facility] Guidelines: Admission for Medically Managed Detox: Requires at least one of the followin. CIWA greater than 12 2. Seizures within the past 24 hours 3. Delirium tremens within the past 24 hours 4. Hallucinations within the past 24 hours 5. Acute intervention needed for co occurring medical disorder 6. Acute intervention needed for co occurring psychiatric disorder 7. Severe withdrawal that cannot be handled at a lower level of care (continued vomiting, continued diarrhea, abnormal vital signs) requiring intravenous medication and/or fluids 8. Patient presents the following: CIWA greater than 12 Admission Criteria Met: Admission criteria met Admission ROS S - HPI Chief Complaint: I need to get sober Allergies/Adverse Reactions: Allergies Allergy/AdvReac Type Severity Reaction Status Date / Time No Known Allergies Allergy Verified 12/21/18 18:24 History of Present Illness: 63 y/o AA man with longstanding h/o alcoholism and opiates use presents for detox. He denies periods of sobriety except for a period of 5 months following his last treatment at [facility] in September of 2017, also was sober x 3 yrs but cannot recollect exact period. He is on methadone maintenance 80 mg, last dose this morning, remaining bottle with his belongings. Patient with agitation and anxiety requiring security personnel intervention because his belongings were removed from him. Exam Limitations: No Limitations - Ebola screening Have you traveled outside of the country in the last 21 days: No (N) Have you had contact with anyone from an Ebola affected area: No Have you been sick,other than usual withdrawal symptoms: No Do you have a fever: No - Review of Systems Constitutional: No Symptoms Reported EENT: reports: No Symptoms Reported Respiratory: reports: No Symptoms reported Cardiac: reports: No Symptoms Reported GI: reports: Nausea : reports: Frequency Musculoskeletal: reports: No Symptoms Reported Integumentary: reports: No Symptoms Reported Neuro: reports: Numbness Endocrine: reports: No Symptoms Reported Hematology: reports: No Symptoms Reported Psychiatric: reports: Agitated, Anxious Other Systems: Reviewed and Negative Patient History - Patient Medical History Hx Anemia: No Hx Asthma: No Hx Chronic Obstructive Pulmonary Disease (COPD): No Hx Cancer: No Hx Cardiac Disorders: No Hx Congestive Heart Failure: No Hx Hypertension: No Hx Hypercholesterolemia: No Hx Pacemaker: No HX Cerebrovascular Accident: No Hx Seizures: No Hx Dementia: No Hx Diabetes: Yes (No treatment) Hx Gastrointestinal Disorders: Yes (GERD, denies meds) Hx Liver Disease: No Hx Genitourinary Disorders: Yes (BPH, denies meds) Hx Sexually Transmitted Disorders: No Hx Renal Disease (ESRD): No Hx Thyroid Disease: No Hx Human Immunodeficiency Virus (HIV): Yes (diagnosed in 1991) Hx Hepatitis C: Yes (Not treated) Hx Depression: No Hx Suicide Attempt: No Hx Bipolar Disorder: No Hx Schizophrenia: No - Patient Surgical History Past Surgical History: Yes Hx Neurologic Surgery: No Hx Cataract Extraction: No Hx Cardiac Surgery: No Hx Lung Surgery: No Hx Breast Surgery: No Hx Breast Biopsy: No Hx Abdominal Surgery: Yes (intestinal obstruction 1996) Hx Appendectomy: No Hx Cholecystectomy: No Hx Genitourinary Surgery: No Hx Orthopedic Surgery: No Other Surgical History: repaIr inguinal hernias Anesthesia Reaction: No - PPD History Previous Implant?: No Documented Results: Positive w/o proof Implanted On Prior R Admission?: No Results: positive PPD to be Administered?: No - Smoking Cessation Smoking history: Current every day smoker Have you smoked in the past 12 months: Yes Aproximately how many cigarettes per day: 20 Cigars Per Day: 0 Hx Chewing Tobacco Use: No Initiated information on smoking cessation: Yes 'Breaking Loose' booklet given: 12/21/18 - Substances abused Alcohol Substance route: Oral Frequency: Daily Amount used: 2 CASES BEER Age of first use: 12 Date of last use: 12/21/18 Heroin Substance route: Injection Frequency: Daily Amount used: 4 BAGS Age of first use: 12 Date of last use: 12/21/18 Family Disease History - Family Disease History Family Disease History: Heart Disease: Mother (), Other: Father (WAS ETOH DEPENDENT AND ), Mother Admission Physical Exam BHS - Vital Signs Vital Signs: Vital Signs - 24 hr 12/21/18 12/21/18 16:56 18:03 Temperature 99.2 F 99.2 F Pulse Rate 82 82 Respiratory 18 18 Rate Blood Pressure 146/89 146/89 - Physical General Appearance: Yes: Alcohol on Breath, Irritable, Anxious HEENTM: Yes: Hearing grossly Normal, Normocephalic, Normal Voice Respiratory: Yes: Chest Non-Tender, Lungs Clear, Normal Breath Sounds, Decreased Breath Sounds, No Accessory Muscle Use Neck: Yes: No masses,lesions,Nodules, Supple Breast: Yes: Breast Exam Deferred Cardiology: Yes: Regular Rhythm, Regular Rate, S1, S2 Abdominal: Yes: Normal Bowel Sounds, Non Tender, Soft, Hernia Genitourinary: Yes: Frequency, Hesitency Back: Yes: Normal Inspection Musculoskeletal: Yes: full range of Motion, Gait Steady, Pelvis Stable Extremities: Yes: Normal Inspection, Normal Range of Motion, Non-Tender Neurological: Yes: Fully Oriented, Alert, Normal Response, Numbness Integumentary: Yes: Within Normal Limits Lymphatic: Yes: Within Normal Limits - Diagnostic (1) Alcohol dependence with uncomplicated withdrawal Current Visit: Yes Status: Acute (2) AIDS (acquired immune deficiency syndrome) Current Visit: No Status: Chronic (3) BPH (benign prostatic hyperplasia) Current Visit: Yes Status: Chronic Qualifiers: Lower urinary tract symptom presence: symptoms present Lower urinary tract symptom detail: urinary hesitancy Qualified Code(s): N40.1 - Benign prostatic hyperplasia with lower urinary tract symptoms; R39.11 - Hesitancy of micturition (4) Chronic alcoholic pancreatitis Current Visit: Yes Status: Chronic Comment: CREON (5) Hepatitis C Current Visit: Yes Status: Chronic Qualifiers: Viral hepatitis chronicity: chronic Hepatic coma status: without hepatic coma Qualified Code(s): B18.2 - Chronic viral hepatitis C (6) Methadone maintenance therapy patient Current Visit: Yes Status: Chronic (7) Nicotine dependence Current Visit: Yes Status: Acute Qualifiers: Nicotine product type: cigarettes Substance use status: uncomplicated Qualified Code(s): F17.210 - Nicotine dependence, cigarettes, uncomplicated Cleared for Admission BHS - Detox or Rehab S Level of Care: Medically Managed Detox Regimen/Protocol: Librium ( ) Breathalyzer - Breathalyzer Breathalyzer: 0.247 Urine Drug Screen - Test Device Lot number: [id number] Expiration date: 08/16/20 - Control Is test valid?: Yes - Results Drug screen NEGATIVE: No Urine drug screen results: MOP-Opiates, MTD-Methadone Inpatient Rehab Admission - Rehab Decision to Admit Inpatient rehab admission?: No - Initial Determination Are CD services needed?: Yes Free of communicable disease: Yes Not in need of hospitalization: Yes
[2018-12-21] MEDS ORDERED: MAG HYDROX/AL HYDROX/SIMETH 30 ML UNIT-DOSE CUP PO PRN (18:52)
[2018-12-21] MEDS ORDERED: NICOTINE POLACRILEX 4 MG GUM BUC PRN (18:52)
[2018-12-21] MEDS ORDERED: ACETAMINOPHEN 325 MG TABLET (FP) PO PRN (18:52)
[2018-12-21] MEDS ORDERED: IBUPROFEN 400 MG TABLET (FP) PO PRN (18:52)
[2018-12-21] MEDS ORDERED: MELATONIN 5 MG TABLETS PO PRN (18:52)
[2018-12-21] MEDS ORDERED: MAGNESIUM HYDROX 2400MG/30ML ORAL SUSPENSION 30 ML CUP PO PRN (18:52)
[2018-12-21] MEDS ORDERED: chlordiazePOXIDE HCL 10 MG CAPSULE PO PRN (18:52)
[2018-12-21] MEDS ORDERED: ONDANSETRON *ODT* 4 MG TABLET SL PRN (18:52)
[2018-12-21] MEDS ORDERED: BISMUTH SUBSALICYLATE 524 MG/30 ML UD PO PRN (18:52)
[2018-12-21] MEDS ORDERED: MAGNESIUM CITRATE 300 ML BOTTLE PO PRN (18:52)
[2018-12-21] MEDS ORDERED: hydrOXYzine PAMOATE 50 MG CAPSULE (FP) PO PRN (18:52)
[2018-12-21] MEDS ORDERED: METHOCARBAMOL 500 MG TABLET PO PRN (18:52)
[2018-12-21] MEDS ORDERED: MENTHOL/PHENOL 1 EACH UD MM PRN (18:52)
[2018-12-21] MEDS: NICOTINE 21 MG/24 HOURS TOPICAL PATCH TD SCH (20:40)
[2018-12-21] MEDS: THIAMINE HCL 100 MG TABLET (FP) PO SCH (22:24)
[2018-12-21] MEDS: chlordiazePOXIDE HCL 25 MG CAPSULE PO SCH (22:24)
[2018-12-22] MEDS: chlordiazePOXIDE HCL 25 MG CAPSULE PO SCH ×2 (04:42→12:41)
[2018-12-22 09:58] LABS: ALBUMIN 3.3 g/dl (3.4-5.0); ALK PHOS 106 U/L (45-117); ANION GAP 7 MMOL/L (8-16); BILIRUBIN,TOTAL 0.7 mg/dL (0.2-1); BLOOD UREA NITROGEN 13 mg/dL (7-18); CALCIUM 8.2 mg/dL (8.5-10.1); CHLORIDE 98 mmol/L (98-107); CO2 30 mmol/L (21-32); CREATININE 0.9 mg/dL (0.55-1.3); GLUCOSE,RANDOM 80 mg/dL (74-106); HEMOGLOBIN 13.8 GM/dL (11.7-16.9); MCHC 34.4 g/dl (32.0-35.9); MEAN CELL VOLUME 99.1 fl (80-96); MEAN PLT VOLUME 9.3 fl (7.5-11.1); PLATELET COUNT 141 K/MM3 (134-434); POTASSIUM 3.9 mmol/L (3.5-5.1); RBC 4.04 M/mm3 (4.00-5.60); RDW 13.4 % (11.9-15.9); SGOT/AST 65 U/L (15-37); SGPT/ALT 45 U/L (13-61); SODIUM 135 mmol/L (136-145); TOT PROT 7.1 g/dl (6.4-8.2); WHITE BLOOD COUNT 3.1 K/mm3 (4.0-10.0)
[2018-12-22] MEDS ORDERED: EMTRICITAB/RILPIVIRI/TENOF ALA (ODEFSEY) TABLET PO SCH (10:00)
[2018-12-22] MEDS ORDERED: METHADONE HCL 40 MG DISPERSABLE TABLET PO ONE (10:00)
[2018-12-22] MEDS ORDERED: ODEFSEY PO SCH (10:01)
[2018-12-22] MEDS: PRENATAL VITAMINS W/ FOLIC ACID TABLET (FP) PO SCH (10:12)
[2018-12-22] MEDS: NICOTINE 21 MG/24 HOURS TOPICAL PATCH TD SCH (10:14)
[2018-12-22] MEDS: ODEFSEY PO SCH (11:05)
--- NOTE | 2018-12-22 16:05 | PN ---
[facility] CIWA - CIWA Score Nausea/Vomitin-No Nausea/No Vomiting Muscle Tremors: 2 Anxiety: 2 Agitation: 1-Slight > Activity Paroxysmal Sweats: 1-Minimal Palms Moist Orientation: 2-Disoriented Date<2 days Tacttile Disturbances: 0-None Auditory Disturbances: 0-None Visual Disturbances: 0-None Headache: 1-Very Mild CIWA-Ar Total Score: 9 S Progress Note (SOAP) Subjective: feeling fine today had methadone 80 mg one dose today due to bottle verification Objective: 12/22/18 16:03 Vital Signs Temperature 96.8 F L 12/22/18 14:22 Pulse Rate 70 12/22/18 15:30 Respiratory Rate 18 12/22/18 14:22 Blood Pressure 127/77 12/22/18 14:22 O2 Sat by Pulse Oximetry (%) Laboratory Last Values WBC 3.1 K/mm3 (4.0-10.0) L 12/22/18 07:50 RBC 4.04 M/mm3 (4.00-5.60) 12/22/18 07:50 Hgb 13.8 GM/dL (11.7-16.9) 12/22/18 07:50 Hct 40.0 % (35.4-49) 12/22/18 07:50 MCV 99.1 fl (80-96) H 12/22/18 07:50 MCH 34.0 pg (25.7-33.7) H 12/22/18 07:50 MCHC 34.4 g/dl (32.0-35.9) 12/22/18 07:50 RDW 13.4 % (11.9-15.9) 12/22/18 07:50 Plt Count 141 K/MM3 (134-434) D 12/22/18 07:50 MPV 9.3 fl (7.5-11.1) 12/22/18 07:50 Sodium 135 mmol/L (136-145) L 12/22/18 07:50 Potassium 3.9 mmol/L (3.5-5.1) 12/22/18 07:50 Chloride 98 mmol/L (98-107) 12/22/18 07:50 Carbon Dioxide 30 mmol/L (21-32) 12/22/18 07:50 Anion Gap 7 MMOL/L (8-16) L 12/22/18 07:50 BUN 13 mg/dL (7-18) 12/22/18 07:50 Creatinine 0.9 mg/dL (0.55-1.3) 12/22/18 07:50 Creat Clearance w eGFR 84.96 (>60) 12/22/18 07:50 Random Glucose 80 mg/dL (74-106) 12/22/18 07:50 Calcium 8.2 mg/dL (8.5-10.1) L 12/22/18 07:50 Total Bilirubin 0.7 mg/dL (0.2-1) 12/22/18 07:50 AST 65 U/L (15-37) H 12/22/18 07:50 ALT 45 U/L (13-61) 12/22/18 07:50 Alkaline Phosphatase 106 U/L (45-117) 12/22/18 07:50 Total Protein 7.1 g/dl (6.4-8.2) 12/22/18 07:50 Albumin 3.3 g/dl (3.4-5.0) L 12/22/18 07:50 RPR Titer Nonreactive (NONREACTIVE) 12/22/18 07:50 lab noted Assessment: withdrawal sx Plan: continue detox
[2018-12-22] MEDS: THIAMINE HCL 100 MG TABLET (FP) PO SCH (22:06)
[2018-12-22] MEDS: chlordiazePOXIDE 5 MG CAPSULE PO SCH (22:07)
[2018-12-23] MEDS: chlordiazePOXIDE 5 MG CAPSULE PO SCH ×2 (05:02→14:22)
[2018-12-23] MEDS: ODEFSEY PO SCH (09:55)
[2018-12-23] MEDS: NICOTINE 21 MG/24 HOURS TOPICAL PATCH TD SCH (09:55)
[2018-12-23] MEDS: PRENATAL VITAMINS W/ FOLIC ACID TABLET (FP) PO SCH (09:55)
[2018-12-23] MEDS ORDERED: METHADONE HCL 40 MG DISPERSABLE TABLET PO ONE (10:00)
--- NOTE | 2018-12-23 14:46 | PN ---
[facility] CIWA - CIWA Score Nausea/Vomitin-No Nausea/No Vomiting Muscle Tremors: 1-None Visible, but [place] Anxiety: 1-Mildly Anxious Agitation: 1-Slight > Activity Paroxysmal Sweats: No Perspiration Orientation: 0-Oriented Tacttile Disturbances: 0-None Auditory Disturbances: 0-None Visual Disturbances: 0-None Headache: 1-Very Mild CIWA-Ar Total Score: 4 S Progress Note (SOAP) Subjective: feeling better today had methadone 80 mg today ambulating on hallway Objective: 12/23/18 15:00 Vital Signs Temperature 95.9 F L 12/23/18 13:33 Pulse Rate 66 12/23/18 13:33 Respiratory Rate 18 12/23/18 13:33 Blood Pressure 125/80 12/23/18 13:33 O2 Sat by Pulse Oximetry (%) Laboratory Last Values WBC 3.1 K/mm3 (4.0-10.0) L 12/22/18 07:50 RBC 4.04 M/mm3 (4.00-5.60) 12/22/18 07:50 Hgb 13.8 GM/dL (11.7-16.9) 12/22/18 07:50 Hct 40.0 % (35.4-49) 12/22/18 07:50 MCV 99.1 fl (80-96) H 12/22/18 07:50 MCH 34.0 pg (25.7-33.7) H 12/22/18 07:50 MCHC 34.4 g/dl (32.0-35.9) 12/22/18 07:50 RDW 13.4 % (11.9-15.9) 12/22/18 07:50 Plt Count 141 K/MM3 (134-434) D 12/22/18 07:50 MPV 9.3 fl (7.5-11.1) 12/22/18 07:50 Sodium 135 mmol/L (136-145) L 12/22/18 07:50 Potassium 3.9 mmol/L (3.5-5.1) 12/22/18 07:50 Chloride 98 mmol/L (98-107) 12/22/18 07:50 Carbon Dioxide 30 mmol/L (21-32) 12/22/18 07:50 Anion Gap 7 MMOL/L (8-16) L 12/22/18 07:50 BUN 13 mg/dL (7-18) 12/22/18 07:50 Creatinine 0.9 mg/dL (0.55-1.3) 12/22/18 07:50 Creat Clearance w eGFR 84.96 (>60) 12/22/18 07:50 Random Glucose 80 mg/dL (74-106) 12/22/18 07:50 Calcium 8.2 mg/dL (8.5-10.1) L 12/22/18 07:50 Total Bilirubin 0.7 mg/dL (0.2-1) 12/22/18 07:50 AST 65 U/L (15-37) H 12/22/18 07:50 ALT 45 U/L (13-61) 12/22/18 07:50 Alkaline Phosphatase 106 U/L (45-117) 12/22/18 07:50 Total Protein 7.1 g/dl (6.4-8.2) 12/22/18 07:50 Albumin 3.3 g/dl (3.4-5.0) L 12/22/18 07:50 RPR Titer Nonreactive (NONREACTIVE) 12/22/18 07:50 lab noted Assessment: 12/23/18 15:01 mild alcohol withdrawal sx Plan: continue detox
[2018-12-23] MEDS ORDERED: chlordiazePOXIDE HCL 10 MG CAPSULE PO PRN (21:00)
[2018-12-23] MEDS: chlordiazePOXIDE HCL 10 MG CAPSULE PO SCH (21:16)
[2018-12-23] MEDS: THIAMINE HCL 100 MG TABLET (FP) PO SCH (22:17)
[2018-12-24] MEDS: chlordiazePOXIDE HCL 10 MG CAPSULE PO SCH (05:36)
[2018-12-24] MEDS ORDERED: METHADONE HCL 40 MG DISPERSABLE TABLET PO SCH (06:00)
[2018-12-24 09:02] VITALS: BP 110/69; PULSE 69; TEMP 97.7
[2018-12-24] MEDS: NICOTINE 21 MG/24 HOURS TOPICAL PATCH TD SCH (10:03)
[2018-12-24] MEDS: ODEFSEY PO SCH (10:03)
[2018-12-24] MEDS: PRENATAL VITAMINS W/ FOLIC ACID TABLET (FP) PO SCH (10:03)
--- NOTE | 2018-12-24 15:29 | DS ---
[facility] Detox Discharge Summary Admission Date: 12/21/18 Discharge Date: 12/24/18 - History Present History: Alcohol Dependence Additional Comments: 63 years old male admitted on 12/21/18 for alcohol withdrawal stabilization completed detox regimen aftercare methadone maintenance program Pertinent Past History: bring in medication list bring in medication list and lab report to methadone maintenance program - Physical Exam Results Vital Signs: Vital Signs Temperature 97.7 F 12/24/18 08:59 Pulse Rate 69 12/24/18 08:59 Respiratory Rate 18 12/24/18 08:59 Blood Pressure 110/69 12/24/18 08:59 O2 Sat by Pulse Oximetry (%) Pertinent Admission Physical Exam Findings: alcohol withdrawal sx Laboratory Last Values WBC 3.1 K/mm3 (4.0-10.0) L 12/22/18 07:50 RBC 4.04 M/mm3 (4.00-5.60) 12/22/18 07:50 Hgb 13.8 GM/dL (11.7-16.9) 12/22/18 07:50 Hct 40.0 % (35.4-49) 12/22/18 07:50 MCV 99.1 fl (80-96) H 12/22/18 07:50 MCH 34.0 pg (25.7-33.7) H 12/22/18 07:50 MCHC 34.4 g/dl (32.0-35.9) 12/22/18 07:50 RDW 13.4 % (11.9-15.9) 12/22/18 07:50 Plt Count 141 K/MM3 (134-434) D 12/22/18 07:50 MPV 9.3 fl (7.5-11.1) 12/22/18 07:50 Sodium 135 mmol/L (136-145) L 12/22/18 07:50 Potassium 3.9 mmol/L (3.5-5.1) 12/22/18 07:50 Chloride 98 mmol/L (98-107) 12/22/18 07:50 Carbon Dioxide 30 mmol/L (21-32) 12/22/18 07:50 Anion Gap 7 MMOL/L (8-16) L 12/22/18 07:50 BUN 13 mg/dL (7-18) 12/22/18 07:50 Creatinine 0.9 mg/dL (0.55-1.3) 12/22/18 07:50 Creat Clearance w eGFR 84.96 (>60) 12/22/18 07:50 Random Glucose 80 mg/dL (74-106) 12/22/18 07:50 Calcium 8.2 mg/dL (8.5-10.1) L 12/22/18 07:50 Total Bilirubin 0.7 mg/dL (0.2-1) 12/22/18 07:50 AST 65 U/L (15-37) H 12/22/18 07:50 ALT 45 U/L (13-61) 12/22/18 07:50 Alkaline Phosphatase 106 U/L (45-117) 12/22/18 07:50 Total Protein 7.1 g/dl (6.4-8.2) 12/22/18 07:50 Albumin 3.3 g/dl (3.4-5.0) L 12/22/18 07:50 RPR Titer Nonreactive (NONREACTIVE) 12/22/18 07:50 lab noted - Treatment Hospital Course: Detox Protocol Followed, Detoxed Safely, Responded well, Discharged Condition Good, Rehab Referral Accepted Patient has Accepted a Rehab Referral to: methadone program and infectious disease specialist - Medication Discharge Medications: Ambulatory Orders Emtricitab/Rilpiviri/Tenof Ala [Odefsey Tablet] 1 each PO DAILY 02/19/17 - Diagnosis (1) HIV (human immunodeficiency virus infection) Status: Chronic Qualifiers: HIV symptom status: asymptomatic Qualified Code(s): Z21 - Asymptomatic human immunodeficiency virus [HIV] infection status (2) Alcohol dependence with uncomplicated withdrawal Status: Acute (3) Nicotine dependence Status: Acute Qualifiers: Nicotine product type: cigarettes Substance use status: in withdrawal Qualified Code(s): F17.213 - Nicotine dependence, cigarettes, with withdrawal (4) BPH (benign prostatic hyperplasia) Status: Chronic Qualifiers: Lower urinary tract symptom presence: symptoms present Lower urinary tract symptom detail: urinary hesitancy Qualified Code(s): N40.1 - Benign prostatic hyperplasia with lower urinary tract symptoms; R39.11 - Hesitancy of micturition (5) Diabetes 1.5, managed as type 2 Status: Chronic (6) GERD (gastroesophageal reflux disease) Status: Chronic Qualifiers: Esophagitis presence: without esophagitis Qualified Code(s): K21.9 - Gastro -esophageal reflux disease without esophagitis (7) Hepatitis C Status: Chronic Qualifiers: Viral hepatitis chronicity: chronic Hepatic coma status: without hepatic coma Qualified Code(s): B18.2 - Chronic viral hepatitis C (8) Methadone maintenance therapy patient Status: Chronic - AMA Did Patient Leave Against Medical Advice: No
== END 2018-12-24 10:15 | disposition home or self-care (01) | DRG 773 ==
LOC: YASAS 15:03 → Y3N 18:19
PROVIDERS: ADMIT Surgery; ATTEND Surgery
PROC: HZ2ZZZZ Detoxification Services for Substance Abuse Treatment (ICD-10-PCS; principal; 2018-12-21)
DX: F10.230 Alcohol dependence with withdrawal, uncomplicated (principal); F11.20 Opioid dependence, uncomplicated; F17.213 Nicotine dependence, cigarettes, with withdrawal; B20 Human immunodeficiency virus [HIV] disease; K21.9 Gastro-esophageal reflux disease without esophagitis; E11.9 Type 2 diabetes mellitus without complications; Z79.4 Long term (current) use of insulin; N40.0 Benign prostatic hyperplasia without lower urinary tract symptoms; B18.2 Chronic viral hepatitis C
CPT/HCPCS: 36415; 71046-TC-FY; 80053; 85027; 86593

== ENCOUNTER 2019-08-29 14:26 | Inpatient (IN) | payer OTHER ==
[2019-08-29 17:18] VITALS: BMI 21.2
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
[2019-08-29] MEDS ORDERED: hydrOXYzine PAMOATE 25 MG CAPSULE (FP) PO PRN (18:39)
[2019-08-29] MEDS ORDERED: MAG HYDROX/AL HYDROX/SIMETH 30 ML UNIT-DOSE CUP PO PRN (18:39)
[2019-08-29] MEDS ORDERED: MELATONIN 5 MG TABLETS PO PRN (18:39)
[2019-08-29] MEDS ORDERED: MAGNESIUM CITRATE 300 ML BOTTLE PO PRN (18:39)
[2019-08-29] MEDS ORDERED: IBUPROFEN 400 MG TABLET (FP) PO PRN (18:39)
[2019-08-29] MEDS ORDERED: METHOCARBAMOL 500 MG TABLET PO PRN (18:39)
[2019-08-29] MEDS ORDERED: BISMUTH SUBSALICYLATE 524 MG/30 ML UD PO PRN (18:39)
[2019-08-29] MEDS ORDERED: MAGNESIUM HYDROX 2400MG/30ML ORAL SUSPENSION 30 ML CUP PO PRN (18:39)
[2019-08-29] MEDS ORDERED: MENTHOL/PHENOL 1 EACH UD MM PRN (18:39)
[2019-08-29] MEDS ORDERED: ACETAMINOPHEN 325 MG TABLET (FP) PO PRN ×2 (18:39)
[2019-08-29] MEDS: diazePAM 5 MG TABLET PO PRN (19:51)
[2019-08-29] MEDS: diazePAM 5 MG TABLET PO SCH (22:52)
[2019-08-29] MEDS: THIAMINE HCL 100 MG TABLET (FP) PO SCH (22:52)
[2019-08-29] MEDS: BACITRACIN/POLYMYXIN B SULFATE 15 GM TUBE TP SCH (23:39)
[2019-08-30] MEDS: diazePAM 5 MG TABLET PO SCH ×3 (05:33→22:48)
[2019-08-30] MEDS: diazePAM 5 MG TABLET PO PRN (09:22)
[2019-08-30] MEDS: METHADONE HCL 40 MG DISPERSABLE TABLET PO SCH (10:17)
[2019-08-30] MEDS: PRENATAL VITAMINS W/ FOLIC ACID TABLET (FP) PO SCH (10:17)
[2019-08-30] MEDS: ASPIRIN 81 MG CHEWABLE TABLETS PO SCH (10:17)
[2019-08-30] MEDS: BACITRACIN/POLYMYXIN B SULFATE 15 GM TUBE TP SCH ×2 (10:18→22:49)
[2019-08-30 10:35] LABS: HEMATOCRIT 44.4 % (35.4-49); HEMOGLOBIN 14.9 GM/dL (11.7-16.9); MCHC 33.6 g/dl (32.0-35.9); MEAN CELL VOLUME 98.1 fl (80-96); MEAN PLT VOLUME 8.9 fl (7.5-11.1); PLATELET COUNT 203 K/MM3 (134-434); RBC 4.53 M/mm3 (4.00-5.60); RDW 12.9 % (11.9-15.9); WHITE BLOOD COUNT 3.3 K/mm3 (4.0-10.0)
[2019-08-30 10:49] LABS: ALBUMIN 3.2 g/dl (3.4-5.0); BILIRUBIN,TOTAL 0.3 mg/dL (0.2-1); BLOOD UREA NITROGEN 11.5 mg/dL (7-18); CREATININE 0.7 mg/dL (0.55-1.3); POTASSIUM 4.5 mmol/L (3.5-5.1); TOT PROT 7.3 g/dl (6.4-8.2)
--- NOTE | 2019-08-30 12:04 | PN ---
[facility] CIWA - CIWA Score Nausea/Vomitin-Mild Nausea/No Vomiting Muscle Tremors: 2 Anxiety: 2 Agitation: 2 Paroxysmal Sweats: 1-Minimal Palms Moist Orientation: 0-Oriented Tacttile Disturbances: 0-None Auditory Disturbances: 0-None Visual Disturbances: 0-None Headache: 1-Very Mild CIWA-Ar Total Score: 9 [facility] Progress Note (SOAP) Subjective: pt admitted yesterday for detox from alcohol. no complaints today. O: Vital Signs - 24 hr 08/29/19 08/29/19 08/30/19 17:09 22:00 01:17 Temperature 97.8 F 97.9 F Pulse Rate 73 64 Respiratory 16 18 18 Rate Blood Pressure 132/73 138/80 08/30/19 08/30/19 08/30/19 03:30 06:00 09:40 Temperature 98.1 F 98.6 F Pulse Rate 65 77 Respiratory 18 18 18 Rate Blood Pressure 151/73 124/92 Laboratory Tests 08/30/19 08/30/19 08:10 08:10 WBC 3.3 L RBC 4.53 Hgb 14.9 Hct 44.4 MCV 98.1 H MCH 33.0 MCHC 33.6 RDW 12.9 Plt Count 203 D MPV 8.9 Sodium 136 Potassium 4.5 Chloride 100 Carbon Dioxide 30 Anion Gap 6 L BUN 11.5 Creatinine 0.7 Est GFR (CKD-EPI)AfAm 114.78 Est GFR (CKD-EPI)NonAf 99.03 Random Glucose 76 Calcium 9.0 Total Bilirubin 0.3 AST 52 H ALT 35 Alkaline Phosphatase 111 Total Protein 7.3 Albumin 3.2 L a/p: AUD- continue alcohol detox protocol
[2019-08-30] MEDS: THIAMINE HCL 100 MG TABLET (FP) PO SCH (22:48)
[2019-08-31] MEDS: diazePAM 5 MG TABLET PO SCH ×2 (06:23→19:13)
[2019-08-31] MEDS: METHADONE HCL 40 MG DISPERSABLE TABLET PO SCH (06:23)
[2019-08-31] MEDS: BACITRACIN/POLYMYXIN B SULFATE 15 GM TUBE TP SCH ×2 (10:31→21:40)
[2019-08-31] MEDS: PRENATAL VITAMINS W/ FOLIC ACID TABLET (FP) PO SCH (10:31)
[2019-08-31] MEDS: ASPIRIN 81 MG CHEWABLE TABLETS PO SCH (10:31)
--- NOTE | 2019-08-31 15:59 | PN ---
[facility] CIWA - CIWA Score Nausea/Vomitin-No Nausea/No Vomiting Muscle Tremors: 2 Anxiety: 1-Mildly Anxious Agitation: 1-Slight > Activity Paroxysmal Sweats: 2 Orientation: 0-Oriented Tacttile Disturbances: 0-None Auditory Disturbances: 0-None Visual Disturbances: 0-None Headache: 0-None Present CIWA-Ar Total Score: 6 [facility] Progress Note (SOAP) Subjective: Feels ok, medication is working Objective: 08/31/19 15:57 Last Vital Signs Temp Pulse Resp BP Pulse Ox 97.9 F 62 18 130/75 08/31/19 14:23 08/31/19 14:23 08/31/19 14:23 08/31/19 14:23 Elevated b/p noted: denies htn, not on med Laboratory Tests 08/30/19 08/30/19 08/30/19 07:33 08:10 08:10 WBC 3.3 L RBC 4.53 Hgb 14.9 Hct 44.4 MCV 98.1 H MCH 33.0 MCHC 33.6 RDW 12.9 Plt Count 203 D MPV 8.9 Sodium 136 Potassium 4.5 Chloride 100 Carbon Dioxide 30 Anion Gap 6 L BUN 11.5 Creatinine 0.7 Est GFR (CKD-EPI)AfAm 114.78 Est GFR (CKD-EPI)NonAf 99.03 POC Glucometer 119 Random Glucose 76 Calcium 9.0 Total Bilirubin 0.3 AST 52 H ALT 35 Alkaline Phosphatase 111 Total Protein 7.3 Albumin 3.2 L RPR Titer 08/30/19 08/31/19 08:10 06:11 WBC RBC Hgb Hct MCV MCH MCHC RDW Plt Count MPV Sodium Potassium Chloride Carbon Dioxide Anion Gap BUN Creatinine Est GFR (CKD-EPI)AfAm Est GFR (CKD-EPI)NonAf POC Glucometer 141 Random Glucose Calcium Total Bilirubin AST ALT Alkaline Phosphatase Total Protein Albumin RPR Titer Nonreactive Labs reviewed: hyperglycemia due to dm Assessment: 08/31/19 16:01 Withdrawal sxs Noted with elevated b/p and hyperglycemia secondary to DMT2 Plan: Continue detox Encouraged PO water intake Scheduled for discharge tomorrow Elevated b/p: denies htn, not on medication, could be r/t withdrawal, monitor b/ p, follow up with PCP for management Hyperglycemia secondary to DMT2: not on medication, monitor FS, follow up with PCP for management
[2019-08-31] MEDS: THIAMINE HCL 100 MG TABLET (FP) PO SCH (21:40)
[2019-09-01] MEDS: METHADONE HCL 40 MG DISPERSABLE TABLET PO SCH (05:37)
[2019-09-01] MEDS ORDERED: diazePAM 5 MG TABLET PO ONE (06:00)
--- NOTE | 2019-09-01 10:05 | DS ---
[facility] Detox Discharge Summary Admission Date: 08/29/19 Discharge Date: 09/01/19 - History Present History: Alcohol Dependence, MMTP - Physical Exam Results Vital Signs: Vital Signs Temperature 98.4 F 09/01/19 09:50 Pulse Rate 77 09/01/19 09:50 Respiratory Rate 16 09/01/19 09:50 Blood Pressure 110/74 09/01/19 09:50 O2 Sat by Pulse Oximetry (%) Pertinent Admission Physical Exam Findings: Vital Signs Temperature 98.4 F 09/01/19 09:50 Pulse Rate 77 09/01/19 09:50 Respiratory Rate 16 09/01/19 09:50 Blood Pressure 110/74 09/01/19 09:50 O2 Sat by Pulse Oximetry (%) Laboratory Tests 08/30/19 08/30/19 08/30/19 07:33 08:10 08:10 WBC 3.3 L RBC 4.53 Hgb 14.9 Hct 44.4 MCV 98.1 H MCH 33.0 MCHC 33.6 RDW 12.9 Plt Count 203 D MPV 8.9 Sodium 136 Potassium 4.5 Chloride 100 Carbon Dioxide 30 Anion Gap 6 L BUN 11.5 Creatinine 0.7 Est GFR (CKD-EPI)AfAm 114.78 Est GFR (CKD-EPI)NonAf 99.03 POC Glucometer 119 Random Glucose 76 Calcium 9.0 Total Bilirubin 0.3 AST 52 H ALT 35 Alkaline Phosphatase 111 Total Protein 7.3 Albumin 3.2 L RPR Titer 08/30/19 08/31/19 09/01/19 08:10 06:11 05:35 WBC RBC Hgb Hct MCV MCH MCHC RDW Plt Count MPV Sodium Potassium Chloride Carbon Dioxide Anion Gap BUN Creatinine Est GFR (CKD-EPI)AfAm Est GFR (CKD-EPI)NonAf POC Glucometer 141 116 Random Glucose Calcium Total Bilirubin AST ALT Alkaline Phosphatase Total Protein Albumin RPR Titer Nonreactive aaox3 ambulating no acute distress - Treatment Hospital Course: Detox Protocol Followed, Detoxed Safely, Responded well, Discharged Condition Good, Rehab Referral Accepted Patient has Accepted a Rehab Referral to: referral provided - Medication Discharge Medications: Ambulatory Orders Aspirin [ASA -] 81 mg PO DAILY 08/29/19 Thiamine HCl [Vitamin B-1] 100 mg PO DAILY 08/29/19 - Diagnosis (1) Alcohol dependence with uncomplicated withdrawal Current Visit: Yes Status: Chronic (2) Heroin abuse Current Visit: Yes Status: Chronic (3) Nicotine dependence Current Visit: Yes Status: Chronic Qualifiers: Nicotine product type: cigarettes Substance use status: uncomplicated Qualified Code(s): F17.210 - Nicotine dependence, cigarettes, uncomplicated (4) Pancreatitis Current Visit: No Status: Acute (5) S/P bilateral inguinal hernia repair Current Visit: No Status: Acute (6) S/p small bowel obstruction Current Visit: No Status: Acute (7) Sarcoidosis Current Visit: No Status: Acute (8) BPH (benign prostatic hyperplasia) Current Visit: No Status: Chronic Qualifiers: Lower urinary tract symptom presence: symptoms present Lower urinary tract symptom detail: urinary hesitancy Qualified Code(s): N40.1 - Benign prostatic hyperplasia with lower urinary tract symptoms; R39.11 - Hesitancy of micturition (9) Chronic alcoholic pancreatitis Current Visit: No Status: Chronic (10) Chronic low back pain Current Visit: No Status: Chronic (11) Cocaine dependence Current Visit: Yes Status: Chronic Qualifiers: Substance use status: uncomplicated Qualified Code(s): F14.20 - Cocaine dependence, uncomplicated (12) Diabetes 1.5, managed as type 2 Current Visit: No Status: Chronic (13) GERD (gastroesophageal reflux disease) Current Visit: No Status: Chronic Qualifiers: Esophagitis presence: without esophagitis Qualified Code(s): K21.9 - Gastro -esophageal reflux disease without esophagitis (14) HIV (human immunodeficiency virus infection) Current Visit: No Status: Chronic Qualifiers: HIV symptom status: asymptomatic Qualified Code(s): Z21 - Asymptomatic human immunodeficiency virus [HIV] infection status (15) Hepatitis C Current Visit: No Status: Chronic Qualifiers: Viral hepatitis chronicity: chronic Hepatic coma status: without hepatic coma Qualified Code(s): B18.2 - Chronic viral hepatitis C (16) Methadone maintenance therapy patient Current Visit: No Status: Chronic (17) Type 2 diabetes mellitus Current Visit: No Status: Chronic Qualifiers: Diabetes mellitus laborer [employer] insulin use: unspecified [employer] insulin use status Diabetes mellitus complication status: without complication Qualified Code(s): E11.9 - Type 2 diabetes mellitus without complications - AMA Did Patient Leave Against Medical Advice: No
[2019-09-01] MEDS: ASPIRIN 81 MG CHEWABLE TABLETS PO SCH (10:10)
[2019-09-01] MEDS: PRENATAL VITAMINS W/ FOLIC ACID TABLET (FP) PO SCH (10:10)
[2019-09-01] MEDS: BACITRACIN/POLYMYXIN B SULFATE 15 GM TUBE TP SCH (10:11)
[2019-09-01 14:14] VITALS: BP 133/72; PULSE 65; TEMP 96.3
== END 2019-09-01 12:45 | disposition home or self-care (01) | DRG 897 ==
LOC: YASAS 14:26 → Y6N 19:01
PROVIDERS: ADMIT Allergy & Immunology; ATTEND Allergy & Immunology
PROC: HZ2ZZZZ Detoxification Services for Substance Abuse Treatment (ICD-10-PCS; principal; 2019-08-29)
DX: F10.230 Alcohol dependence with withdrawal, uncomplicated (principal); F11.20 Opioid dependence, uncomplicated; F14.20 Cocaine dependence, uncomplicated; F17.210 Nicotine dependence, cigarettes, uncomplicated; Z21 Asymptomatic human immunodeficiency virus [HIV] infection status; D86.9 Sarcoidosis, unspecified; N40.1 Benign prostatic hyperplasia with lower urinary tract symptoms; R39.11 Hesitancy of micturition; M54.5 Low back pain; G89.29 Other chronic pain; E11.65 Type 2 diabetes mellitus with hyperglycemia; B18.2 Chronic viral hepatitis C; R03.0 Elevated blood-pressure reading, without diagnosis of hypertension; Z87.19 Personal history of other diseases of the digestive system
CPT/HCPCS: 36415; 80053; 82962; 85027; 86593

== ENCOUNTER 2021-02-12 14:00 | Inpatient (IN) | payer OTHER ==
[2021-02-12 15:36] VITALS: BMI 21.2
[2021-02-12] MEDS ORDERED: MAG HYDROX/AL HYDROX/SIMETH 30 ML UNIT-DOSE CUP PO PRN (16:06)
[2021-02-12] MEDS ORDERED: NICOTINE POLACRILEX 2 MG GUM BUC PRN (16:06)
[2021-02-12] MEDS ORDERED: LORazepam 1 MG TABLET PO PRN (16:06)
[2021-02-12] MEDS ORDERED: MAGNESIUM CITRATE 300 ML BOTTLE PO PRN (16:06)
[2021-02-12] MEDS ORDERED: NALOXONE HCL 0.4 MG/ML VIAL IM PRN (16:06)
[2021-02-12] MEDS ORDERED: METHOCARBAMOL 500 MG TABLET PO PRN (16:06)
[2021-02-12] MEDS ORDERED: MAGNESIUM HYDROX 2400MG/30ML ORAL SUSPENSION 30 ML CUP PO PRN (16:06)
[2021-02-12] MEDS ORDERED: ACETAMINOPHEN 325 MG TABLET (FP) PO PRN ×2 (16:06)
[2021-02-12] MEDS ORDERED: MENTHOL/PHENOL 1 EACH UD MM PRN (16:06)
[2021-02-12] MEDS ORDERED: IBUPROFEN 400 MG TABLET (FP) PO PRN (16:06)
[2021-02-12] MEDS ORDERED: BISMUTH SUBSALICYLATE 524 MG/30 ML PO PRN (16:06)
[2021-02-12] MEDS: LORazepam 2 MG TABLET PO SCH ×2 (19:28→22:30)
[2021-02-12] MEDS: THIAMINE HCL 100 MG TABLET (FP) PO SCH (22:30)
[2021-02-12] MEDS: MELATONIN 5 MG TABLETS PO SCH (22:30)
[2021-02-13] MEDS: LORazepam 2 MG TABLET PO SCH ×4 (05:51→22:08)
[2021-02-13] MEDS: NICOTINE 7 MG/24 HOURS TOPICAL PATCH TD SCH (10:34)
[2021-02-13] MEDS: amLODIPine BESYLATE 10 MG TABLET (FP) PO SCH (10:34)
[2021-02-13] MEDS: PRENATAL VITAMINS W/ FOLIC ACID TABLET (FP) PO SCH (10:34)
[2021-02-13] MEDS: ASPIRIN 81 MG CHEWABLE TABLETS PO SCH (10:34)
[2021-02-13 11:07] LABS: HEMATOCRIT 42.1 % (35.4-49); HEMOGLOBIN 14.7 GM/dL (11.7-16.9); MCH 34.1 pg (25.7-33.7); MEAN CELL VOLUME 97.2 fl (80-96); MEAN PLT VOLUME 8.7 fl (7.5-11.1); PLATELET COUNT 174 K/MM3 (134-434); RBC 4.33 M/mm3 (4.00-5.60); RDW 13.4 % (11.9-15.9); WHITE BLOOD COUNT 3.7 K/mm3 (4.0-10.0)
[2021-02-13 11:11] LABS: ALBUMIN 3.6 g/dl (3.4-5.0); BLOOD UREA NITROGEN 12.6 mg/dL (7-18); CALCIUM 8.8 mg/dL (8.5-10.1)
[2021-02-13 11:14] LABS: CREATININE 0.9 mg/dL (0.55-1.3)
[2021-02-13 11:16] LABS: TOT PROT 7.3 g/dl (6.4-8.2)
[2021-02-13] MEDS: CARVEDILOL 6.25 MG TABLET (FP) PO SCH (11:38)
[2021-02-13] MEDS: THIAMINE HCL 100 MG TABLET (FP) PO SCH (22:07)
[2021-02-13] MEDS: MELATONIN 5 MG TABLETS PO SCH (22:08)
[2021-02-14] MEDS: LORazepam 1 MG TABLET PO SCH ×4 (05:49→22:07)
[2021-02-14] MEDS: ASPIRIN 81 MG CHEWABLE TABLETS PO SCH (10:39)
[2021-02-14] MEDS: amLODIPine BESYLATE 10 MG TABLET (FP) PO SCH (10:39)
[2021-02-14] MEDS: PRENATAL VITAMINS W/ FOLIC ACID TABLET (FP) PO SCH (10:39)
[2021-02-14] MEDS: EMTRICITAB/RILPIVIRI/TENOF ALA (ODEFSEY) TABLET PO SCH (10:40)
[2021-02-14] MEDS: CARVEDILOL 6.25 MG TABLET (FP) PO SCH (10:40)
[2021-02-14] MEDS: NICOTINE 7 MG/24 HOURS TOPICAL PATCH TD SCH (10:40)
[2021-02-14] MEDS: THIAMINE HCL 100 MG TABLET (FP) PO SCH (22:07)
[2021-02-14] MEDS: MELATONIN 5 MG TABLETS PO SCH (22:07)
[2021-02-15] MEDS ORDERED: LORazepam 0.5 MG TABLET PO PRN
[2021-02-15] MEDS: LORazepam 0.5 MG TABLET PO SCH ×4 (05:53→22:27)
[2021-02-15] MEDS ORDERED: METHADONE HCL 10 MG TABLET PO ONE (09:36)
[2021-02-15] MEDS ORDERED: METHADONE 80 MG, METHADONE 20 MG PO ONE (09:52)
[2021-02-15] MEDS ORDERED: METHADONE HCL 10 MG TABLET ONE (10:00)
[2021-02-15] MEDS ORDERED: METHADONE HCL 40 MG DISPERSABLE TABLET ONE (10:01)
[2021-02-15] MEDS: NICOTINE 7 MG/24 HOURS TOPICAL PATCH TD SCH (10:10)
[2021-02-15] MEDS: EMTRICITAB/RILPIVIRI/TENOF ALA (ODEFSEY) TABLET PO SCH (10:10)
[2021-02-15] MEDS: ASPIRIN 81 MG CHEWABLE TABLETS PO SCH (10:10)
[2021-02-15] MEDS: CARVEDILOL 6.25 MG TABLET (FP) PO SCH (10:10)
[2021-02-15] MEDS: PRENATAL VITAMINS W/ FOLIC ACID TABLET (FP) PO SCH (10:10)
[2021-02-15] MEDS: amLODIPine BESYLATE 10 MG TABLET (FP) PO SCH (10:10)
[2021-02-15 11:39] LABS: ALBUMIN 3.4 g/dl (3.4-5.0); CALCIUM 9.8 mg/dL (8.5-10.1)
[2021-02-15 11:40] LABS: BLOOD UREA NITROGEN 14.9 mg/dL (7-18)
[2021-02-15 11:43] LABS: BILIRUBIN,TOTAL 1.1 mg/dL (0.2-1); TOT PROT 7.4 g/dl (6.4-8.2)
[2021-02-15] MEDS: MELATONIN 5 MG TABLETS PO SCH (22:27)
[2021-02-15] MEDS: THIAMINE HCL 100 MG TABLET (FP) PO SCH (22:27)
[2021-02-16] MEDS ORDERED: METHADONE HCL 40 MG DISPERSABLE TABLET ONE (04:30)
[2021-02-16] MEDS ORDERED: METHADONE HCL 10 MG TABLET ONE (04:30)
[2021-02-16] MEDS ORDERED: LORazepam 0.5 MG TABLET PO ONE (05:00)
[2021-02-16] MEDS ORDERED: METHADONE HCL 40 MG DISPERSABLE TABLET PO SCH (06:00)
[2021-02-16] MEDS ORDERED: METHADONE 80 MG, METHADONE 20 MG PO SCH ×2 (06:00)
[2021-02-16 06:09] LABS: SARS-CoV-2 NAA Not Detected (Not Detected)
[2021-02-16 09:43] VITALS: BP 103/66; PULSE 76; TEMP 96.9
[2021-02-16] MEDS: NICOTINE 7 MG/24 HOURS TOPICAL PATCH TD SCH (10:02)
[2021-02-16] MEDS: PRENATAL VITAMINS W/ FOLIC ACID TABLET (FP) PO SCH (10:02)
[2021-02-16] MEDS: ASPIRIN 81 MG CHEWABLE TABLETS PO SCH (10:02)
[2021-02-16] MEDS: EMTRICITAB/RILPIVIRI/TENOF ALA (ODEFSEY) TABLET PO SCH (10:02)
[2021-02-16] MEDS: amLODIPine BESYLATE 10 MG TABLET (FP) PO SCH (10:02)
[2021-02-16] MEDS: CARVEDILOL 6.25 MG TABLET (FP) PO SCH (10:02)
== END 2021-02-16 10:24 | disposition home or self-care (01) | DRG 897 ==
LOC: YASAS 14:00 → Y3N 16:57
PROVIDERS: ADMIT Allergy & Immunology; ATTEND Allergy & Immunology
PROC: HZ2ZZZZ Detoxification Services for Substance Abuse Treatment (ICD-10-PCS; principal; 2021-02-12)
DX: F10.230 Alcohol dependence with withdrawal, uncomplicated (principal); F11.20 Opioid dependence, uncomplicated; F14.20 Cocaine dependence, uncomplicated; K86.0 Alcohol-induced chronic pancreatitis; F17.210 Nicotine dependence, cigarettes, uncomplicated; F41.9 Anxiety disorder, unspecified; Z21 Asymptomatic human immunodeficiency virus [HIV] infection status; E11.9 Type 2 diabetes mellitus without complications; B18.2 Chronic viral hepatitis C; J44.9 Chronic obstructive pulmonary disease, unspecified; K21.9 Gastro-esophageal reflux disease without esophagitis; N40.1 Benign prostatic hyperplasia with lower urinary tract symptoms; R39.11 Hesitancy of micturition; D86.9 Sarcoidosis, unspecified; Z98.890 Other specified postprocedural states
CPT/HCPCS: 36415; 80053; 82947; 85027; 86593; 86780; 93005; 93010; C9803; U0003; U0005

== ENCOUNTER 2021-08-03 17:37 | Inpatient (IN) | payer OTHER ==
[2021-08-03] MEDS ORDERED: ACETAMINOPHEN 325 MG TABLET (FP) PO PRN ×2 (19:39)
[2021-08-03] MEDS ORDERED: MAGNESIUM HYDROX 2400MG/30ML ORAL SUSPENSION 30 ML CUP PO PRN (19:39)
[2021-08-03] MEDS ORDERED: ONDANSETRON *ODT* 4 MG TABLET SL PRN (19:39)
[2021-08-03] MEDS ORDERED: METHOCARBAMOL 500 MG TABLET PO PRN (19:39)
[2021-08-03] MEDS ORDERED: MAGNESIUM CITRATE 300 ML BOTTLE PO PRN (19:39)
[2021-08-03] MEDS ORDERED: MAG HYDROX/AL HYDROX/SIMETH 30 ML UNIT-DOSE CUP PO PRN (19:39)
[2021-08-03] MEDS ORDERED: BISMUTH SUBSALICYLATE 524 MG/30 ML PO PRN (19:39)
[2021-08-03] MEDS ORDERED: NICOTINE 10 MG CARTRIDGE (INHALER) IH PRN (19:39)
[2021-08-03] MEDS ORDERED: IBUPROFEN 400 MG TABLET (FP) PO PRN (19:39)
[2021-08-03] MEDS ORDERED: MENTHOL/PHENOL 1 EACH UD MM PRN (19:39)
[2021-08-03 20:16] VITALS: BMI 20.3
[2021-08-03] MEDS: MELATONIN 5 MG TABLETS PO SCH (22:24)
[2021-08-03] MEDS: hydrOXYzine PAMOATE 25 MG CAPSULE (FP) PO SCH (22:24)
[2021-08-03] MEDS: THIAMINE HCL 100 MG TABLET (FP) PO SCH (22:24)
[2021-08-04] MEDS: hydrOXYzine PAMOATE 25 MG CAPSULE (FP) PO SCH ×5 (05:17→22:20)
[2021-08-04] MEDS ORDERED: CARVEDILOL 6.25 MG TABLET (FP) PO SCH (10:00)
[2021-08-04] MEDS ORDERED: methaDONE HCL 40 MG DISPERSABLE TABLET PO SCH ×2 (10:15→11:00)
[2021-08-04] MEDS ORDERED: diazePAM 5 MG TABLET PO PRN (10:24)
[2021-08-04] MEDS: EMTRICITAB/RILPIVIRI/TENOF ALA (ODEFSEY) TABLET PO SCH (10:31)
[2021-08-04] MEDS: CARVEDILOL 6.25 MG TABLET (FP) PO SCH ×2 (10:31→22:21)
[2021-08-04] MEDS: PRENATAL VITAMINS W/ FOLIC ACID TABLET (FP) PO SCH (10:31)
[2021-08-04] MEDS: ASPIRIN 81 MG CHEWABLE TABLETS PO SCH (10:31)
[2021-08-04] MEDS ORDERED: methaDONE 80 MG, methaDONE 20 MG PO SCH (10:55)
[2021-08-04 11:05] LABS: HEMATOCRIT 41.9 % (35.4-49); HEMOGLOBIN 14.4 GM/dL (11.7-16.9); MCH 33.4 pg (25.7-33.7); MCHC 34.3 g/dl (32.0-35.9); MEAN CELL VOLUME 97.3 fl (80-96); MEAN PLT VOLUME 8.9 fl (7.5-11.1); PLATELET COUNT 177 10^3/uL (134-434); RBC 4.31 M/mm3 (4.00-5.60); RDW 14.1 % (11.9-15.9); WHITE BLOOD COUNT 4.1 K/mm3 (4.0-10.0)
[2021-08-04 11:33] LABS: ALBUMIN 3.1 g/dl (3.4-5.0); CALCIUM 8.7 mg/dL (8.5-10.1)
[2021-08-04 11:34] LABS: BLOOD UREA NITROGEN 8.3 mg/dL (7-18)
[2021-08-04 11:37] LABS: CREATININE 0.8 mg/dL (0.55-1.3)
[2021-08-04 11:38] LABS: BILIRUBIN,TOTAL 0.4 mg/dL (0.2-1); TOT PROT 6.9 g/dl (6.4-8.2)
[2021-08-04] MEDS ORDERED: methaDONE HCL 10 MG TABLET ONE (11:57)
[2021-08-04] MEDS ORDERED: methaDONE HCL 40 MG DISPERSABLE TABLET ONE (11:58)
[2021-08-04] MEDS: diazePAM 5 MG TABLET PO SCH ×3 (12:05→22:20)
[2021-08-04] MEDS ORDERED: FLU VACC QS2021-22(6MOS UP)/PF 60 MCG/0.5 ML SYRINGE IM ONE (13:00)
[2021-08-04] MEDS: THIAMINE HCL 100 MG TABLET (FP) PO SCH (22:21)
[2021-08-04] MEDS: MELATONIN 5 MG TABLETS PO SCH (22:21)
[2021-08-05] MEDS ORDERED: methaDONE HCL 10 MG TABLET ONE ×2 (04:17→09:10)
[2021-08-05] MEDS ORDERED: methaDONE HCL 40 MG DISPERSABLE TABLET ONE ×2 (04:18→09:10)
[2021-08-05] MEDS: diazePAM 5 MG TABLET PO SCH ×4 (05:03→23:13)
[2021-08-05] MEDS: hydrOXYzine PAMOATE 25 MG CAPSULE (FP) PO SCH ×5 (05:03→23:13)
[2021-08-05] MEDS: ASPIRIN 81 MG CHEWABLE TABLETS PO SCH (10:13)
[2021-08-05] MEDS: PRENATAL VITAMINS W/ FOLIC ACID TABLET (FP) PO SCH (10:13)
[2021-08-05] MEDS: CARVEDILOL 6.25 MG TABLET (FP) PO SCH ×2 (10:14→23:17)
[2021-08-05] MEDS: EMTRICITAB/RILPIVIRI/TENOF ALA (ODEFSEY) TABLET PO SCH (10:15)
[2021-08-05] MEDS ORDERED: PENICILLIN G BENZATHINE 2,400,000 UNIT/4 ML PFS IM ONE (13:45)
[2021-08-05] MEDS: THIAMINE HCL 100 MG TABLET (FP) PO SCH (23:13)
[2021-08-05] MEDS: MELATONIN 5 MG TABLETS PO SCH (23:13)
[2021-08-06] MEDS: hydrOXYzine PAMOATE 25 MG CAPSULE (FP) PO SCH ×5 (06:11→22:23)
[2021-08-06] MEDS: diazePAM 5 MG TABLET PO SCH ×3 (06:11→22:22)
[2021-08-06] MEDS: CARVEDILOL 6.25 MG TABLET (FP) PO SCH ×2 (10:05→22:22)
[2021-08-06] MEDS: EMTRICITAB/RILPIVIRI/TENOF ALA (ODEFSEY) TABLET PO SCH (10:06)
[2021-08-06] MEDS: ASPIRIN 81 MG CHEWABLE TABLETS PO SCH (10:07)
[2021-08-06] MEDS ORDERED: methaDONE HCL 40 MG DISPERSABLE TABLET ONE (10:07)
[2021-08-06] MEDS ORDERED: methaDONE HCL 10 MG TABLET ONE (10:07)
[2021-08-06] MEDS: PRENATAL VITAMINS W/ FOLIC ACID TABLET (FP) PO SCH (10:08)
[2021-08-06] MEDS: THIAMINE HCL 100 MG TABLET (FP) PO SCH (22:22)
[2021-08-06] MEDS: MELATONIN 5 MG TABLETS PO SCH (22:23)
[2021-08-07] MEDS: diazePAM 5 MG TABLET PO SCH ×2 (06:22→17:32)
[2021-08-07] MEDS: hydrOXYzine PAMOATE 25 MG CAPSULE (FP) PO SCH ×5 (06:22→22:42)
[2021-08-07] MEDS ORDERED: methaDONE HCL 10 MG TABLET ONE (09:48)
[2021-08-07] MEDS ORDERED: methaDONE HCL 40 MG DISPERSABLE TABLET ONE (09:48)
[2021-08-07] MEDS: EMTRICITAB/RILPIVIRI/TENOF ALA (ODEFSEY) TABLET PO SCH (10:25)
[2021-08-07] MEDS: PRENATAL VITAMINS W/ FOLIC ACID TABLET (FP) PO SCH (10:25)
[2021-08-07] MEDS: CARVEDILOL 6.25 MG TABLET (FP) PO SCH ×2 (10:26→22:41)
[2021-08-07] MEDS: ASPIRIN 81 MG CHEWABLE TABLETS PO SCH (10:26)
[2021-08-07] MEDS: MELATONIN 5 MG TABLETS PO SCH (22:41)
[2021-08-07] MEDS: THIAMINE HCL 100 MG TABLET (FP) PO SCH (22:42)
[2021-08-08] MEDS: hydrOXYzine PAMOATE 25 MG CAPSULE (FP) PO SCH ×2 (05:11→10:39)
[2021-08-08] MEDS ORDERED: diazePAM 5 MG TABLET PO ONE (06:00)
[2021-08-08] MEDS ORDERED: methaDONE HCL 40 MG DISPERSABLE TABLET ONE (08:45)
[2021-08-08] MEDS ORDERED: methaDONE HCL 10 MG TABLET ONE (08:45)
[2021-08-08 09:16] VITALS: BP 105/53; PULSE 80; TEMP 97.1
[2021-08-08] MEDS: EMTRICITAB/RILPIVIRI/TENOF ALA (ODEFSEY) TABLET PO SCH (10:37)
[2021-08-08] MEDS: ASPIRIN 81 MG CHEWABLE TABLETS PO SCH (10:37)
[2021-08-08] MEDS: CARVEDILOL 6.25 MG TABLET (FP) PO SCH (10:37)
[2021-08-08] MEDS: PRENATAL VITAMINS W/ FOLIC ACID TABLET (FP) PO SCH (10:37)
[2021-08-08 13:32] LABS: BLOOD UREA NITROGEN 30.1 mg/dL (7-18); CALCIUM 9.4 mg/dL (8.5-10.1)
[2021-08-08 13:36] LABS: CREATININE 1.3 mg/dL (0.55-1.3)
== END 2021-08-08 11:36 | disposition home or self-care (01) | DRG 897 ==
LOC: YASAS 17:37 → Y3N 20:24
PROVIDERS: ADMIT Allergy & Immunology; ATTEND Allergy & Immunology
PROC: HZ2ZZZZ Detoxification Services for Substance Abuse Treatment (ICD-10-PCS; principal; 2021-08-03)
DX: F10.230 Alcohol dependence with withdrawal, uncomplicated (principal); F14.20 Cocaine dependence, uncomplicated; E87.1 Hypo-osmolality and hyponatremia; K86.0 Alcohol-induced chronic pancreatitis; F11.23 Opioid dependence with withdrawal; F17.210 Nicotine dependence, cigarettes, uncomplicated; Z21 Asymptomatic human immunodeficiency virus [HIV] infection status; E88.09 Other disorders of plasma-protein metabolism, not elsewhere classified; E87.8 Other disorders of electrolyte and fluid balance, not elsewhere classified; E11.9 Type 2 diabetes mellitus without complications; K21.9 Gastro-esophageal reflux disease without esophagitis; J44.9 Chronic obstructive pulmonary disease, unspecified; M54.50 Low back pain, unspecified; G89.29 Other chronic pain; N40.0 Benign prostatic hyperplasia without lower urinary tract symptoms; R39.11 Hesitancy of micturition; A53.0 Latent syphilis, unspecified as early or late; Z87.19 Personal history of other diseases of the digestive system; Z86.19 Personal history of other infectious and parasitic diseases; Z87.11 Personal history of peptic ulcer disease; Z98.890 Other specified postprocedural states
CPT/HCPCS: 36415; 71046-TC-FY; 80048; 80053; 82962; 83036; 85027; 86593; 86780; C9803; U0003; U0005

== ENCOUNTER 2022-03-24 16:49 | Inpatient (IN) | payer OTHER ==
[2022-03-24 20:09] VITALS: BMI 19.4
[2022-03-24] MEDS ORDERED: NICOTINE 10 MG CARTRIDGE (INHALER) IH PRN (22:39)
[2022-03-24] MEDS ORDERED: BISMUTH SUBSALICYLATE 524 MG/30 ML PO PRN (22:39)
[2022-03-24] MEDS ORDERED: MAGNESIUM HYDROX 2400MG/30ML ORAL SUSPENSION 30 ML CUP PO PRN (22:39)
[2022-03-24] MEDS ORDERED: ACETAMINOPHEN 325 MG TABLET (FP) PO PRN ×2 (22:39)
[2022-03-24] MEDS ORDERED: IBUPROFEN 400 MG TABLET (FP) PO PRN (22:39)
[2022-03-24] MEDS ORDERED: MAG HYDROX/AL HYDROX/SIMETH 30 ML UNIT-DOSE CUP PO PRN (22:39)
[2022-03-24] MEDS ORDERED: MAGNESIUM CITRATE 300 ML BOTTLE PO PRN (22:39)
[2022-03-24] MEDS ORDERED: ONDANSETRON *ODT* 4 MG TABLET SL PRN (22:39)
[2022-03-24] MEDS ORDERED: BENZOCAINE/MENTHOL (CHLORASEPTIC ) LOZENGE MM PRN (22:39)
[2022-03-24] MEDS ORDERED: DICYCLOMINE HCL 10 MG CAPSULE PO PRN (22:39)
[2022-03-24] MEDS ORDERED: LOPERAMIDE HCL 2 MG CAPSULE PO PRN (22:39)
[2022-03-24] MEDS ORDERED: IBUPROFEN 600 MG TABLET (FP) PO PRN (22:39)
[2022-03-25] MEDS ORDERED: LORazepam 1 MG TABLET PO PRN (08:18)
[2022-03-25] MEDS ORDERED: methaDONE HCL 10 MG TABLET PO SCH (08:30)
[2022-03-25] MEDS ORDERED: LORazepam 1 MG TABLET PO ONE (08:57)
[2022-03-25] MEDS ORDERED: LORazepam 2 MG TABLET ONE (09:03)
[2022-03-25] MEDS ORDERED: LORazepam 2 MG/ML SDV VIAL IM ONE (09:09)
[2022-03-25 10:29] LABS: HEMATOCRIT 43.4 % (35.4-49); HEMOGLOBIN 14.6 GM/dL (11.7-16.9); MCH 32.4 pg (25.7-33.7); MCHC 33.6 g/dl (32.0-35.9); MEAN CELL VOLUME 96.4 fl (80-96); MEAN PLT VOLUME 8.8 fl (7.5-11.1); PLATELET COUNT 174 10^3/uL (134-434); RDW 13.7 % (11.9-15.9); WHITE BLOOD COUNT 2.4 K/mm3 (4.0-10.0)
[2022-03-25 10:47] LABS: CALCIUM 8.8 mg/dL (8.5-10.1)
[2022-03-25 10:48] LABS: ALBUMIN 3.4 g/dl (3.4-5.0)
[2022-03-25 10:51] LABS: CREATININE 0.6 mg/dL (0.55-1.3)
[2022-03-25 10:52] LABS: BILIRUBIN,TOTAL 0.7 mg/dL (0.2-1); TOT PROT 7.6 g/dl (6.4-8.2)
[2022-03-25] MEDS: LORazepam 2 MG TABLET PO SCH ×3 (11:10→22:20)
[2022-03-25] MEDS ORDERED: methaDONE HCL 10 MG TABLET ONE (14:47)
[2022-03-25] MEDS ORDERED: methaDONE HCL 40 MG DISPERSABLE TABLET ONE (14:47)
[2022-03-25] MEDS: NICOTINE 14 MG/24 HOURS TOPICAL PATCH TD SCH (14:49)
[2022-03-25] MEDS: PRENATAL VITAMINS W/ FOLIC ACID TABLET (FP) PO SCH (14:51)
[2022-03-25] MEDS: MELATONIN 5 MG TABLETS PO SCH (22:20)
[2022-03-25] MEDS: THIAMINE HCL 100 MG TABLET (FP) PO SCH (22:20)
[2022-03-25] MEDS: METHOCARBAMOL 500 MG TABLET PO PRN (22:21)
[2022-03-26] MEDS ORDERED: methaDONE HCL 10 MG TABLET ONE (04:18)
[2022-03-26] MEDS ORDERED: methaDONE HCL 40 MG DISPERSABLE TABLET ONE (04:19)
[2022-03-26] MEDS: LORazepam 2 MG TABLET PO SCH ×4 (05:22→22:22)
[2022-03-26] MEDS: PRENATAL VITAMINS W/ FOLIC ACID TABLET (FP) PO SCH (10:31)
[2022-03-26] MEDS: NICOTINE 14 MG/24 HOURS TOPICAL PATCH TD SCH (10:32)
[2022-03-26] MEDS: MELATONIN 5 MG TABLETS PO SCH (22:23)
[2022-03-26] MEDS: METHOCARBAMOL 500 MG TABLET PO PRN (22:23)
[2022-03-26] MEDS: THIAMINE HCL 100 MG TABLET (FP) PO SCH (22:23)
[2022-03-27] MEDS ORDERED: methaDONE HCL 40 MG DISPERSABLE TABLET ONE (05:26)
[2022-03-27] MEDS ORDERED: methaDONE HCL 10 MG TABLET ONE (05:26)
[2022-03-27] MEDS: LORazepam 1 MG TABLET PO SCH ×4 (05:27→22:14)
[2022-03-27] MEDS: PRENATAL VITAMINS W/ FOLIC ACID TABLET (FP) PO SCH (10:36)
[2022-03-27] MEDS: NICOTINE 14 MG/24 HOURS TOPICAL PATCH TD SCH (10:37)
[2022-03-27] MEDS ORDERED: cloNIDine HCL 0.1 MG TABLET PO ONE (22:02)
[2022-03-27] MEDS: THIAMINE HCL 100 MG TABLET (FP) PO SCH (22:14)
[2022-03-27] MEDS: MELATONIN 5 MG TABLETS PO SCH (22:15)
[2022-03-28] MEDS ORDERED: LORazepam 0.5 MG TABLET PO PRN
[2022-03-28] MEDS ORDERED: methaDONE HCL 10 MG TABLET ONE (04:18)
[2022-03-28] MEDS ORDERED: methaDONE HCL 40 MG DISPERSABLE TABLET ONE (04:19)
[2022-03-28] MEDS: LORazepam 0.5 MG TABLET PO SCH ×4 (05:14→22:40)
[2022-03-28] MEDS: NICOTINE 14 MG/24 HOURS TOPICAL PATCH TD SCH (10:22)
[2022-03-28] MEDS: PRENATAL VITAMINS W/ FOLIC ACID TABLET (FP) PO SCH (10:22)
[2022-03-28] MEDS: ASPIRIN 81 MG CHEWABLE TABLETS PO SCH (14:39)
[2022-03-28] MEDS: EMTRICITAB/RILPIVIRI/TENOF ALA (ODEFSEY) TABLET PO SCH (15:08)
[2022-03-28] MEDS: MELATONIN 5 MG TABLETS PO SCH (22:40)
[2022-03-28] MEDS: THIAMINE HCL 100 MG TABLET (FP) PO SCH (22:40)
[2022-03-28] MEDS: CARVEDILOL 6.25 MG TABLET (FP) PO SCH (22:40)
[2022-03-29] MEDS ORDERED: methaDONE HCL 10 MG TABLET ONE (04:38)
[2022-03-29] MEDS ORDERED: methaDONE HCL 40 MG DISPERSABLE TABLET ONE (04:38)
[2022-03-29] MEDS ORDERED: LORazepam 0.5 MG TABLET PO ONE (05:00)
[2022-03-29] MEDS: EMTRICITAB/RILPIVIRI/TENOF ALA (ODEFSEY) TABLET PO SCH (07:46)
[2022-03-29 09:27] VITALS: BP 122/75; PULSE 77; TEMP 97.9
[2022-03-29] MEDS: CARVEDILOL 6.25 MG TABLET (FP) PO SCH (10:20)
[2022-03-29] MEDS: NICOTINE 14 MG/24 HOURS TOPICAL PATCH TD SCH (10:20)
[2022-03-29] MEDS: PRENATAL VITAMINS W/ FOLIC ACID TABLET (FP) PO SCH (10:20)
[2022-03-29] MEDS: ASPIRIN 81 MG CHEWABLE TABLETS PO SCH (10:20)
== END 2022-03-29 11:05 | disposition home or self-care (01) | DRG 897 ==
LOC: YASAS 16:49 → Y3N 03-25 13:46
PROVIDERS: ADMIT Allergy & Immunology; ATTEND Surgery
PROC: HZ2ZZZZ Detoxification Services for Substance Abuse Treatment (ICD-10-PCS; principal; 2022-03-25)
DX: F10.230 Alcohol dependence with withdrawal, uncomplicated (principal); F14.20 Cocaine dependence, uncomplicated; F17.210 Nicotine dependence, cigarettes, uncomplicated; Z21 Asymptomatic human immunodeficiency virus [HIV] infection status; I10 Essential (primary) hypertension; E11.9 Type 2 diabetes mellitus without complications; D86.9 Sarcoidosis, unspecified; J44.9 Chronic obstructive pulmonary disease, unspecified; K21.9 Gastro-esophageal reflux disease without esophagitis; M54.50 Low back pain, unspecified; G89.29 Other chronic pain; N40.1 Benign prostatic hyperplasia with lower urinary tract symptoms; R39.11 Hesitancy of micturition; B18.2 Chronic viral hepatitis C; R76.8 Other specified abnormal immunological findings in serum; Z87.19 Personal history of other diseases of the digestive system; Z87.11 Personal history of peptic ulcer disease; Z86.19 Personal history of other infectious and parasitic diseases
CPT/HCPCS: 36415; 71046-TC-FY; 80053; 85027; 86593; 86780; C9803-CS; J0735; U0003; U0005